=== PATIENT | male | born 1960 | race Caucasian/White ===

== ENCOUNTER 2022-03-06 11:57 | Outpatient (REF) | payer OTHER, SELFPAY | END 2022-03-06 11:58 | disposition home or self-care (01) | LOC: HO.LNP 11:57 | PROVIDERS: Visit Provider Clinical Nurse Specialist Psychiatric/Mental Health, Adult | DX: Z13.89 Encounter for screening for other disorder (principal) ==

== ENCOUNTER 2022-05-03 11:45 | Emergency (ER) | payer OTHER, SELFPAY ==
[2022-05-03 11:48] VITALS: BP 129/90; PULSE 96; RESP 16; TEMP 36.4; O2SAT 97; BMI 29.0
[2022-05-03 11:54] LABS: Glucose, Whole Blood 391 mg/dL (60-115)
--- NOTE | 2022-05-03 11:56 | ECG_ITS ---
Test Reason : recheck/ hyperglycemia Blood Pressure : / mmHG Vent. Rate : 084 BPM Atrial Rate : 084 BPM P-R Int : 176 ms QRS Dur : 090 ms QT Int : 348 ms P-R-T Axes : 049 -75 011 degrees QTc Int : 411 ms Normal sinus rhythm Pulmonary disease pattern Left anterior fascicular block Cannot rule out Inferior infarct (masked by fascicular block?) , age undetermined Abnormal ECG No previous ECGs available Referred By: Mine Barcenas Electronically Signed By:Leonard Bower
[2022-05-03 12:10] LABS: MANUAL DIFF FLAG NO
[2022-05-03 12:11] LABS: Basophils Absolute Auto 0.1 X10*3/uL (0.0-0.2); Basophils Percent Auto 0.6 % (0-2); Eosinophils Percent Auto 0.2 % (0-4); Hematocrit 42.7 % (42.0-52.0); Hemoglobin 14.6 g/dl (14.0-18.0); Imm Gran Abs Auto 0.01 X10*3/uL (0.00-0.03); Imm Gran Pct Auto 0.1 % (0.0-0.4); Lymphocytes Absolute Auto 2.1 X10*3/uL (1.2-4.9); Lymphocytes Percent Auto 23.2 % (20-40); Mean Corpuscular HGB Conc 34.2 g/dl (31.0-36.0); Mean Corpuscular Hemoglobin 27.8 pg (27.0-33.0); Mean Corpuscular Volume 81.2 fL (80.0-98.0); Mean Platelet Volume 12.4 fL (9.4-12.4); Monocytes Absolute Auto 0.5 X10*3/uL (0.1-1.2); Monocytes Percent Auto 5.1 % (2-11); Neutrophils Absolute Auto 6.2 x10*3/uL (2.0-8.3); Neutrophils Percent Auto 70.8 % (45-73); Platelet Count 171 X10*3/uL (160-400); Red Blood Count 5.26 X10*6/uL (4.60-5.80); Red Cell Distribution Width 12.7 % (11.0-16.0); White Blood Count 8.8 X10*3/uL (4.8-10.8)
[2022-05-03 12:20] VITALS: BP 147/75; PULSE 87; RESP 14; O2SAT 96
[2022-05-03 12:28] LABS: Appearance Urine CLEAR; Color Urine STRAW; Glucose Urine UA >=1000 MG/DL (NEG); Leukocyte Esterase Urine NEG (NEG); Nitrite Urine NEG (NEG); PH 6.5 (5.0-8.0); Urine Blood NEG (NEG); Urine Ketones 5 MG/DL (NEG); Urine Protein NEG (NEG-TRACE)
[2022-05-03 12:43] LABS: Alanine Aminotransferase 33 U/L (0-40); Albumin Level 4.6 g/dL (3.5-5.0); Alkaline Phosphatase 84 U/L (39-117); Anion Gap 16 (12-20); Aspartate Amino Transferase 20 U/L (5-37); Bilirubin Total 0.4 mg/dL (0.0-1.0); Blood Urea Nitrogen 11 mg/dL (9-16); Calcium 9.7 mg/dL (8.4-10.2); Carbon Dioxide 22 mmol/L (22-29); Chloride 100 mmol/L (96-108); Creatinine Clr Calc Pharmacy 72.6; Estimated Glomerular Filt Rate > 60; Glucose Random 444 mg/dL (60-115); Potassium 4.9 mmol/L (3.3-5.1); Sodium 133 mmol/L (135-145); Total Protein 7.3 g/dL (6.5-8.0)
--- NOTE | 2022-05-03 12:51 | ED.GENADULT ---
HPI - General Adult General Chief complaint: Recheck/Abnormal Lab/Rx Stated complaint: diabetes Time Seen by Provider: 05/03/22 11:55 Source: patient Mode of arrival: ambulatory History of Present Illness HPI narrative: 62-year-old male with known diabetes presents after he was referred from his primary care provider's office within elevated glucose level. Patient states that he takes his medication as prescribed but was told that there was a national shortage of 1 of them and is unable to recall which 1. Patient states that his mother is not getting any younger in sometimes forgets that he has special food considerations that helped him to control his diabetes. He otherwise denies any fever, chills, shortness of breath, chest pain/palpitations, GI or symptoms. Related Data Allergies Allergy/AdvReac Type Severity Reaction Status Date / Time No Known Allergies Allergy Mild NOT Unverified 08/04/20 15:12 APPLICABLE Review of Systems Review of Systems: Pertinent positives and negatives as stated HPI 10 point review of systems is otherwise negative. PMFSH Past Medical History Source: nursing notes reviewed Medical History ADHD Diabetes Social History Social History Alcohol intake: never Patient Tobacco Use Status: Never used Tobacco Use of substances other than those prescribed or required for medical reasons: No Advance Directives: No Advance Directives Information Provided: No Physical Exam ED Vital Signs: Vital Signs - 24 hr 05/03/22 11:48 05/03/22 12:20 Temperature 97.5 F Pulse Rate 96 87 Respiratory Rate 16 14 Blood Pressure 129/90 H 147/75 H Pulse Oximetry 97 96 Oxygen Delivery Method Room Air Room Air BMI result Body Mass Index 29.0 VITAL SIGNS: Reviewed. GENERAL: Well developed, well nourished, in no acute distress. HEAD: Normocephalic/atraumatic EYES: PERRLA, EOMI EARS: Ext canals without abnormality OROPHARYNX: no oral lesions noted, posterior pharynx clear LUNGS: Normal breath sounds. No adventitious sounds or accessory muscle use. SpO2<97> CARDIOVASCULAR: Regular rate and rhythm without noted murmurs ABDOMEN: Soft, non-tender, non-distended with bowel sounds. MUSCULOSKELETAL: No tenderness, deformities, or effusions noted on gross inspection. EXTREMITIES: No cyanosis, clubbing or edema. SKIN: Inspection of the skin reveals no rashes NEUROLOGIC: Alert and oriented x 4. Strength and sensation to light touch were grossly intact x 4. Course Course Course Narrative: 62-year-old male with history and clinical presentation consistent with hyperglycemia without clinical evidence of DKA or HHS and would likely benefit from more stringent dietary habits in combination with adjustment of his medication by his primary care provider. Review of all investigations otherwise negative for acute findings and there is no evidence of DKA or HHS either on presentation or objectively through laboratory measurements. Patient is otherwise tolerating oral intake and was counseled regarding appropriate dietary considerations and to continue take his medication as prescribed. 1431: I discussed this case with the patient's primary care provider who will see the patient again on May 08 at 14:00. Patient's medication will be renewed/refilled by tomorrow. Medical Decision Making Lab Data Result diagrams: 05/03/22 12:02 05/03/22 12:02 Labs: Lab Results 05/03/22 05/03/22 05/03/22 Range/Units 11:50 12:02 12:02 WBC 8.8 (4.8-10.8) X10*3/uL RBC 5.26 (4.60-5.80) X10*6/uL Hgb 14.6 (14.0-18.0) g/dl Hct 42.7 (42.0-52.0) % MCV 81.2 (80.0-98.0) fL MCH 27.8 (27.0-33.0) pg MCHC 34.2 (31.0-36.0) g/dl RDW 12.7 (11.0-16.0) % Plt Count 171 (160-400) X10*3/uL MPV 12.4 (9.4-12.4) fL Immature Gran % (Auto) 0.1 (0.0-0.4) % Neut % (Auto) 70.8 (45-73) % Lymph % (Auto) 23.2 (20-40) % [place] % (Auto) 5.1 (2-11) % Eos % (Auto) 0.2 (0-4) % Baso % (Auto) 0.6 (0-2) % Lymph # (Auto) 2.1 (1.2-4.9) X10*3/uL [place] # (Auto) 0.5 (0.1-1.2) X10*3/uL Eos # (Auto) 0.0 (0.0-0.4) X10*3/uL Baso # (Auto) 0.1 (0.0-0.2) X10*3/uL Abs Immat Gran (auto) 0.01 (0.00-0.03) X10*3/uL Absolute Neuts (auto) 6.2 (2.0-8.3) x10*3/uL Absolute Nucleated RBC 0.000 (0.0-0.012) X10*3/uL Nucleated RBC % (auto) 0.0 (0.0-0.2) /100WBC Sodium 133 L (135-145) mmol/L Potassium 4.9 (3.3-5.1) mmol/L Chloride 100 (96-108) mmol/L Carbon Dioxide 22 (22-29) mmol/L Anion Gap 16 (12-20) BUN 11 (9-16) mg/dL Creatinine 1.03 (0.5-1.4) mg/dL Estim Creat Clear Calc 72.6 Estimated GFR > 60 POC Glucose 391 H* (60-115) mg/dL Random Glucose 444 H* (60-115) mg/dL Calcium 9.7 (8.4-10.2) mg/dL Total Bilirubin 0.4 (0.0-1.0) mg/dL AST 20 (5-37) U/L ALT 33 (0-40) U/L Alkaline Phosphatase 84 (39-117) U/L Total Protein 7.3 (6.5-8.0) g/dL Albumin 4.6 (3.5-5.0) g/dL Urine Color Urine Appearance Urine pH (5.0-8.0) Ur Specific [place] (1.005-1.025) Urine Protein (NEG-TRACE) MG/DL Urine Glucose (UA) (NEG) MG/DL Urine Ketones (NEG) MG/DL Urine Blood (NEG) Urine Nitrite (NEG) Ur Leukocyte Esterase (NEG) Urine RBC (0) /HPF Urine WBC (0-4) /HPF Ur Squamous Epith Cells /LPF Urine Bacteria /LPF Acetone, Qual Negative (Negative) 05/03/22 05/03/22 Range/Units 12:18 13:47 WBC (4.8-10.8) X10*3/uL RBC (4.60-5.80) X10*6/uL Hgb (14.0-18.0) g/dl Hct (42.0-52.0) % MCV (80.0-98.0) fL MCH (27.0-33.0) pg MCHC (31.0-36.0) g/dl RDW (11.0-16.0) % Plt Count (160-400) X10*3/uL MPV (9.4-12.4) fL Immature Gran % (Auto) (0.0-0.4) % Neut % (Auto) (45-73) % Lymph % (Auto) (20-40) % [place] % (Auto) (2-11) % Eos % (Auto) (0-4) % Baso % (Auto) (0-2) % Lymph # (Auto) (1.2-4.9) X10*3/uL [place] # (Auto) (0.1-1.2) X10*3/uL Eos # (Auto) (0.0-0.4) X10*3/uL Baso # (Auto) (0.0-0.2) X10*3/uL Abs Immat Gran (auto) (0.00-0.03) X10*3/uL Absolute Neuts (auto) (2.0-8.3) x10*3/uL Absolute Nucleated RBC (0.0-0.012) X10*3/uL Nucleated RBC % (auto) (0.0-0.2) /100WBC Sodium (135-145) mmol/L Potassium (3.3-5.1) mmol/L Chloride (96-108) mmol/L Carbon Dioxide (22-29) mmol/L Anion Gap (12-20) BUN (9-16) mg/dL Creatinine (0.5-1.4) mg/dL Estim Creat Clear Calc Estimated GFR POC Glucose 326 H (60-115) mg/dL Random Glucose (60-115) mg/dL Calcium (8.4-10.2) mg/dL Total Bilirubin (0.0-1.0) mg/dL AST (5-37) U/L ALT (0-40) U/L Alkaline Phosphatase (39-117) U/L Total Protein (6.5-8.0) g/dL Albumin (3.5-5.0) g/dL Urine Color STRAW Urine Appearance CLEAR Urine pH 6.5 (5.0-8.0) Ur Specific [place] 1.010 (1.005-1.025) Urine Protein NEG (NEG-TRACE) MG/DL Urine Glucose (UA) >=1000 H (NEG) MG/DL Urine Ketones 5 (NEG) MG/DL Urine Blood NEG (NEG) Urine Nitrite NEG (NEG) Ur Leukocyte Esterase NEG (NEG) Urine RBC 0 (0) /HPF Urine WBC 0 (0-4) /HPF Ur Squamous Epith Cells NONE /LPF Urine Bacteria NONE /LPF Acetone, Qual (Negative) ECG Data Attestation: I personally reviewed and interpreted this ECG as follows: Prior ECG tracings: not available for review Interpretation: Normal sinus rhythm, HR-84, no STEMI, MD/QRS/QTC is within normal limits. Discharge Plan Discharge Clinical Impression: Hyperglycemia due to diabetes mellitus Patient Disposition: Home, Self-Care Instructions: Diabetes and Nutrition (ED), Diabetes and Exercise (ED) Additional Instructions: 1. You have been restarted on your metformin, a prescription has been sent to your pharmacy by your primary care provider and should be available to you by tomorrow. 2. A follow-up appointment has been made with your primary care provider for 05/08/2022 at 2:00pm, please do not miss this appointment. 3. Do not hesitate to return to the emergency room if you have any acute worsening of symptoms. Referrals: Name,MD Marlon [Primary Care Provider] - 05/08/22 2:00 pm
[2022-05-03 12:58] LABS: RBC Urine 0 /HPF (0); WBC Urine 0 /HPF (0-4)
[2022-05-03] MEDS: 0.9 % Sodium Chloride 1,000 ML 999 ML IV (13:00)
[2022-05-03 13:32] LABS: Acetone, serum QL Negative (Negative)
[2022-05-03 13:56] LABS: Glucose, Whole Blood 326 mg/dL (60-115)
[2022-05-03] MEDS: metFORMIN HCl 500 MG TABLET PO (15:20)
[2022-05-03 15:21] VITALS: BP 155/85; PULSE 64; RESP 16; O2SAT 98
== END 2022-05-03 15:39 | disposition home or self-care (01) ==
PROVIDERS: Emergency Provider Student in an Organized Health Care Education/Training Program; PCP Internal Medicine Geriatric Medicine
DX: E11.65 Type 2 diabetes mellitus with hyperglycemia (principal)
CPT/HCPCS: 36415; 80053; 81001; 82009; 82947; 85025; 93005; 96360; 99284; 99285

== ENCOUNTER 2024-08-21 09:02 | Outpatient (REF) | payer OTHER, SELFPAY ==
[2024-08-21 11:09] LABS: MANUAL DIFF FLAG NO
[2024-08-21 11:18] LABS: Basophils Percent Auto 0.8 % (0-2); Eosinophils Absolute Auto 0.1 X10*3/uL (0.0-0.4); Eosinophils Percent Auto 2.6 % (0-4); Hematocrit 41.6 % (42.0-52.0); Imm Gran Abs Auto 0.01 X10*3/uL (0.00-0.03); Imm Gran Pct Auto 0.2 % (0.0-0.4); Lymphocytes Absolute Auto 2.1 X10*3/uL (1.2-4.9); Mean Corpuscular HGB Conc 33.7 g/dl (31.0-36.0); Mean Corpuscular Hemoglobin 27.7 pg (27.0-33.0); Mean Corpuscular Volume 82.4 fL (80.0-98.0); Mean Platelet Volume 12.5 fL (9.4-12.4); Monocytes Absolute Auto 0.6 X10*3/uL (0.1-1.2); Monocytes Percent Auto 10.5 % (2-11); Neutrophils Absolute Auto 2.5 x10*3/uL (2.0-8.3); Neutrophils Percent Auto 46.9 % (45-73); Platelet Count 196 X10*3/uL (160-400); Red Blood Count 5.05 X10*6/uL (4.60-5.80); Red Cell Distribution Width 13.6 % (11.0-16.0); White Blood Count 5.3 X10*3/uL (4.8-10.8)
[2024-08-21 12:37] LABS: Creatinine Urine 59.39 mg/dL; Microalbum/Creatinine Ratio Ur 18.5 ug/mg cr (<30)
[2024-08-21 12:47] LABS: Alanine Aminotransferase 28 U/L (0-40); Albumin Level 4.4 g/dL (3.5-5.0); Alkaline Phosphatase 70 U/L (39-117); Anion Gap 15 (12-20); Aspartate Amino Transferase 22 U/L (5-37); Bilirubin Total 0.5 mg/dL (0.0-1.0); Blood Urea Nitrogen 10 mg/dL (9-16); Calcium 9.8 mg/dL (8.4-10.2); Carbon Dioxide 23 mmol/L (22-29); Chloride 104 mmol/L (96-108); Cholesterol 132 mg/dL (<200); Estimated Glomerular Filt Rate > 60; Glucose Random 200 mg/dL (60-115); HDL Cholesterol 37 mg/dL (>40); LDL Cholesterol Calculated 59 mg/dL (<100); Sodium 138 mmol/L (135-145); Total Protein 7.2 g/dL (6.5-8.0); Triglycerides 182 mg/dL (<150)
== END 2024-08-21 09:03 | disposition home or self-care (01) ==
LOC: HO.HHCL 09:02
PROVIDERS: Visit Provider Internal Medicine Geriatric Medicine
DX: E11.69 Type 2 diabetes mellitus with other specified complication (principal); E66.9 Obesity, unspecified
CPT/HCPCS: 36415; 80053; 80061; 82043; 82570; 85025

== ENCOUNTER 2024-10-29 09:33 | Outpatient (REF) | payer OTHER, SELFPAY ==
--- OUTSIDE RECORDS SUMMARY | 2024-10-29 09:37 | XMS_ITS | Clinical Summary ---
Author Organization Unknown Care Team Providers Care Gambling Dealer Name Role Phone SHANNA CUI, MILKA Unavailable Unavailable NATHAN OIL WELL CABLE TOOL DRILLER, NOMAN Unavailable Unavailable CESIA NELSON, WAGNER Unavailable Unavailable Payers Payer Name Policy Type Policy Number Effective Date Expira tion Date [facility] [id number] MEDICAID [facility] [id number] MEDICARE - [facility]/[place] - PD [id number] Problems Condition Name Condition Details Condition Category Status Onset Date Resolution Date Last Treatment Date Treating Clinician Comments SCHIZOPHRENI A, UNSPECIFIED Active 05-28 00:00: 00 TYPE 2 DIABETES MELLITUS WITHOUT COMPLICATION S Active 11-18 00:00: 00 INHALANT ABUSE, IN REMISSION Active 11-18 00:00: 00 KENO WRITER / RUNNER (CURRENT) USE OF ORAL HYPOGLYCEMIC DRUGS Active 11-18 00:00: 00 Allergies, Adverse Reactions, Alerts Allergy Name Allergy Type Status Severity Reaction(s) Onset Date Inactive Date Treating Clinician Comments NKA Propensity to adverse reactions Active 2019-01 23:13:3 4 Medications Ordered Medication Name Filled Medication Name Start Date Stop Date Current Medication? Ordering Clinician Indication Dosage Frequency Signature (SIG) Comments Components atorvastati n 20 mg tablet 12-15 00:00: 00 Yes [id number] 20 mg EVERY DAY 20 mg EVERY DAY (route: oral) Alternate Route: BY MOUTH. Med Classific ation: Cardiovas cular Therapy Agents benztropine 1 mg tablet 01-28 00:00: 00 Yes [id number] 1 mg DAILY 1 mg SHERIN Y (route: oral) Alternate Route: NONE. Med Classific ation: Central Nervous System Agents Depakote ER 500 mg tablet,exte nded release 01-28 00:00: 00 Yes [id number] 500 mg BEDTIME 500 mg BEDTIME (route: oral) Alternate Route: NONE. Med Classific ation: Central Nervous System Agents metformin 500 mg tablet 1-28 00:00: 00 Yes [id number] 500 mg EVERY DAY 500 mg EVERY DAY (route: oral) Alternate Route: BY MOUTH. Med Classific ation: Endocrine Risperdal Consta 50 mg/2 mL intramuscul ar susp,extend ed release 2 00:00: 00 Yes [id number] 50 mg 1 SYRINGE INTRAMUSCU LARLY ONCE EVERY TWO WEEKS DIRECTED EVERY 50 mg 1 SYRINGE INTRAMUSCU LARLY ONCE EVERY TWO WEEKS DIRECTED EVERY (route: intramuscu lar) Alternate Route: 50MG IM. Med Classific ation: Central Nervous System Agents Risperdal 2 mg tablet 3-13 00:00: 00 Yes [id number] 2 mg BEDTIME 2 mg BEDTIME (route: oral) Alternate Route: NONE. Med Classific ation: Central Nervous System Agents glipizide ER 2.5 mg tablet, extended release 24 hr 05-17 00:00: 00 04-27 23:59 :00 No [id number] 2.5 mg DAILY 2.5 mg DAILY (route: oral) Med Classific ation: Endocrine Vital Signs Vital Name Observation Time Observation Value Commen ts Temperature 2024-10-27 12:56:00.000 98.1 [degF] Temperature 2024-10-26 11:16:00.000 97.5 [degF] Temperature 2024-10-25 10:40:00.000 98.1 [degF] Temperature 2024-10-24 11:59:00.000 97.9 [degF] Temperature 2024-10-23 14:04:00.000 97.8 [degF] Temperature 2024-10-22 12:41:00.000 97.5 [degF] Temperature 2024-10-21 14:01:00.000 97.5 [degF] Temperature 2024-10-20 13:26:00.000 97.5 [degF] Temperature 2024-10-19 12:37:00.000 97.5 [degF] Temperature 2024-10-18 12:21:00.000 97.8 [degF] Temperature 2024-10-17 11:30:00.000 98 [degF] Temperature 2024-10-16 10:49:00.000 97.5 [degF] Temperature 2024-10-15 13:50:00.000 97.6 [degF] Temperature 2024-10-14 13:29:00.000 98 [degF] Temperature 2024-10-13 13:18:00.000 97.5 [degF] Temperature 2024-10-12 11:57:00.000 97.9 [degF] Temperature 2024-10-11 12:48:00.000 97.7 [degF] Temperature 2024-10-10 10:08:00.000 97.5 [degF] Temperature 2024-10-09 14:36:00.000 98 [degF] Temperature 2024-10-08 12:07:00.000 97.5 [degF] Temperature 2024-10-07 14:04:00.000 97.5 [degF] Temperature 2024-10-06 11:50:00.000 97.8 [degF] Temperature 2024-10-05 14:58:00.000 97.8 [degF] Temperature 2024-10-04 21:57:00.000 98 [degF] Temperature 2024-10-03 11:01:00.000 97.5 [degF] Temperature 2024-10-02 13:09:00.000 97.5 [degF] Temperature 2024-10-01 10:17:00.000 97.6 [degF] Temperature 2024-09-30 13:39:00.000 97.6 [degF] Temperature 2024-09-29 11:41:00.000 97.8 [degF] Temperature 2024-09-28 11:48:00.000 97.9 [degF] Temperature 2024-09-27 11:49:00.000 98.1 [degF] Temperature 2024-09-26 10:59:00.000 97.5 [degF] Temperature 2024-09-25 12:23:00.000 97.5 [degF] Temperature 2024-09-24 12:56:00.000 97.6 [degF] Temperature 2024-09-23 11:01:00.000 97.5 [degF] Temperature 2024-09-22 12:50:00.000 98 [degF] Temperature 2024-09-21 11:15:00.000 97.9 [degF] Temperature 2024-09-20 11:50:00.000 97.9 [degF] Temperature 2024-09-19 09:45:00.000 97.6 [degF] Temperature 2024-09-18 10:56:00.000 98 [degF] Temperature 2024-09-17 13:34:00.000 98 [degF] Temperature 2024-09-16 15:09:00.000 97.6 [degF] Temperature 2024-09-15 13:47:00.000 97.5 [degF] Temperature 2024-09-14 12:49:00.000 97.5 [degF] Temperature 2024-09-13 11:41:00.000 97.5 [degF] Temperature 2024-09-12 14:28:00.000 97.5 [degF] Temperature 2024-09-11 15:58:00.000 97.5 [degF] Temperature 2024-09-10 09:45:00.000 97.5 [degF] Temperature 2024-09-09 10:22:00.000 97.5 [degF] Temperature 2024-09-08 12:12:00.000 97.5 [degF] Temperature 2024-09-07 14:00:00.000 97.5 [degF] Temperature 2024-09-06 09:55:00.000 97.5 [degF] Temperature 2024-09-05 11:22:00.000 97.5 [degF] Temperature 2024-09-04 23:55:00.000 97.6 [degF] Temperature 2024-09-03 08:42:00.000 97.5 [degF] Systolic Blood Pressure 2024-10-14 13:29:00.000 134 mm [Hg] Diastolic Blood Pressure 2024-10-14 13:29:00.000 70 mm [Hg] Plan of Treatment Planned Activity Planned Date Details Comments Future Scheduled Test SKILLED NU RSE TO EVALUATE PATIENT, IDENTIFY PRIMARY AND CO-MORBID CONDITIONS CODED PER CODING GUIDELINES, AND DEVELOP PATIENT SPECIFIC PLAN OF CARE THAT INCLUDES PATIENT GOAL FOR HOME HEALTH. [code = SKILLED NURSE TO EVALUATE PATIENT, IDENTIFY PRIMARY AND CO-MORBID CONDITIONS CODED PER CODING GUIDELINES, AND DEVELOP PATIENT SPECIFIC PLAN OF CARE THAT INCLUDES PATIENT GOAL FOR HOME HEALTH.] Future Scheduled Test SKILLED NU RSE TO PERFORM HOME SAFETY AND FALL ASSESSMENT AND PROVIDE INSTRUCTION TO IMPLEMENT HOME SAFETY AND FALL PREVENTION STRATEGIES. [code = SKILLED NURSE TO PERFORM HOME SAFETY AND FALL ASSESSMENT AND PROVIDE INSTRUCTION TO IMPLEMENT HOME SAFETY AND FALL PREVENTION STRATEGIES.] Future Scheduled Test SKILLED NU RSE TO PROVIDE INSTRUCTION TO PATIENT/CAREGIVER RELATED TO DISCHARGE PLANNING. [code = SKILLED NURSE TO PROVIDE INSTRUCTION TO PATIENT/CAREGIVER RELATED TO DISCHARGE PLANNING.] Future Scheduled Test SKILLED NU RSE TO O/A OF PATIENTS MENTAL/BEHAVIORAL STATUS, ASSESS VITAL SIGNS DAILY [code = SKILLED NURSE TO O/A OF PATIENTS MENTAL/BEHAVIORAL STATUS, ASSESS VITAL SIGNS DAILY ] Future Scheduled Test CLINICAL S UMMARY (SOC/RECERT, 10 DAY, 60 DAY): THE PATIENT IS RECEIVING HOMECARE DUE TO NEW ONSET/EXACERBATION OF: YES RECENT HOSPITALIZATION/INPATIENT ADMISSION RELATED TO: NO NEW OR CHANGED MEDICATIONS PERTINENT TO THE PLAN OF CARE: YES PATIENT LIVING SITUATION/CAREGIVER STATUS: WITH FAMILY SUMMARIZE SKILLED NEED: MEDICATION MANAGEMENT, VITAL SIGN ASSESSMENT, MENTAL STATUS ASSESSMENT AND DIAGNOSIS MANAGEMENT [code = CLINICAL SUMMARY (SOC/RECERT, 10 DAY, 60 DAY): THE PATIENT IS RECEIVING HOMECARE DUE TO NEW ONSET/EXACERBATION OF: YES RECENT HOSPITALIZATION/INPATIENT ADMISSION RELATED TO: NO NEW OR CHANGED MEDICATIONS PERTINENT TO THE PLAN OF CARE: YES PATIENT LIVING SITUATION/CAREGIVER STATUS: WITH FAMILY SUMMARIZE SKILLED NEED: MEDICATION MANAGEMENT, VITAL SIGN ASSESSMENT, MENTAL STATUS ASSESSMENT AND DIAGNOSIS MANAGEMENT ] Future Scheduled Test SKILLED NU RSE WILL MAINTAIN SITUATIONAL AWARENESS FOR SAFETY AND WILL NOTIFY CLINICAL PRODUCT ENGINEERING MANAGER AND PHYSICIAN/PROVIDER WITH ANY CHANGE IN CONDITION. [code = SKILLED NURSE WILL MAINTAIN SITUATIONAL AWARENESS FOR SAFETY AND WILL NOTIFY CLINICAL PRODUCT ENGINEERING MANAGER AND PHYSICIAN/PROVIDER WITH ANY CHANGE IN CONDITION.] Future Scheduled Test SKILLED NU RSE TO REVIEW PATIENT MEDICATIONS. INSTRUCT PATIENT/CAREGIVER ON MONITORING OF EFFECTIVENESS, ADVERSE DRUG REACTIONS, SIDE EFFECTS OF ALL MEDICATIONS (PRESCRIPTION/-OTC), AND HOW AND WHEN TO REPORT PROBLEMS. [code = SKILLED NURSE TO REVIEW PATIENT MEDICATIONS. INSTRUCT PATIENT/CAREGIVER ON MONITORING OF EFFECTIVENESS, ADVERSE DRUG REACTIONS, SIDE EFFECTS OF ALL MEDICATIONS (PRESCRIPTION/-OTC), AND HOW AND WHEN TO REPORT PROBLEMS.] Future Scheduled Test SKILLED NU RSE TO ADMINISTER MEDICATIONS DAILY AND PRE-POUR MEDICATIONS TILL NEXT [facility] VISIT PER MEDICATION LIST. [code = SKILLED NURSE TO ADMINISTER MEDICATIONS DAILY AND PRE-POUR MEDICATIONS TILL NEXT [facility] VISIT PER MEDICATION LIST.] Future Scheduled Test SKILLED NU RSE FOR MEDICATION ADMINISTRATION PER MEDICATION LIST TO BE PERFORMED DAILY [code = SKILLED NURSE FOR MEDICATION ADMINISTRATION PER MEDICATION LIST TO BE PERFORMED DAILY ] Future Scheduled Test SKILLED NU RSE TO PRE-POUR MEDICATION PER MEDICATION LIST TILL NEXT [facility] VISIT [code = SKILLED NURSE TO PRE-POUR MEDICATION PER MEDICATION LIST TILL NEXT [facility] VISIT ] Future Scheduled Test SKILLED NU RSE FOR O/A AND SKILLED TEACHING RELATED TO MANAGEMENT OF DEPRESSIVE SYMPTOMS AND/OR DEPRESSION. SN TO REPORT SIGNIFICANT CHANGE IN DEPRESSIVE SYMPTOMS TO CLINICAL PROVIDER FOR EARLY INTERVENTION. [code = SKILLED NURSE FOR O/A AND SKILLED TEACHING RELATED TO MANAGEMENT OF DEPRESSIVE SYMPTOMS AND/OR DEPRESSION. SN TO REPORT SIGNIFICANT CHANGE IN DEPRESSIVE SYMPTOMS TO CLINICAL PROVIDER FOR EARLY INTERVENTION.] Future Scheduled Test SKILLED NU RSE FOR O/A AND SKILLED TEACHING OF COPING SKILLS TO MANAGE ANXIETY AND MAINTAIN SAFETY. [code = SKILLED NURSE FOR O/A AND SKILLED TEACHING OF COPING SKILLS TO MANAGE ANXIETY AND MAINTAIN SAFETY.] Future Scheduled Test SKILLED NU RSE FOR O/A OF NEUROCOGNITIVE AND BEHAVIORAL STATUS [code = SKILLED NURSE FOR O/A OF NEUROCOGNITIVE AND BEHAVIORAL STATUS] Future Scheduled Test SKILLED NU RSE FOR O/A OF ALTERED THOUGHT PROCESS AND/OR DISRUPTION IN COGNITIVE OPERATIONS AND ACTIVITIES [code = SKILLED NURSE FOR O/A OF ALTERED THOUGHT PROCESS AND/OR DISRUPTION IN COGNITIVE OPERATIONS AND ACTIVITIES ] Future Scheduled Test SKILLED NU RSE TO ASSESS PATIENTS PSYCHOSOCIAL STATUS TO IDENTIFY POTENTIAL ISSUES THAT MAY COMPLICATE THE PROVISION OF THE PLAN OF CARE INCLUDING THE PATIENTS ABILITY TO ACCESS COMMUNITY RESOURCES AND PSYCHOSOCIAL SUPPORT SERVICES. [code = SKILLED NURSE TO ASSESS PATIENTS PSYCHOSOCIAL STATUS TO IDENTIFY POTENTIAL ISSUES THAT MAY COMPLICATE THE PROVISION OF THE PLAN OF CARE INCLUDING THE PATIENTS ABILITY TO ACCESS COMMUNITY RESOURCES AND PSYCHOSOCIAL SUPPORT SERVICES.] Future Scheduled Test SKILLED NU RSE FOR O/A OF CLIENT'S SOCIAL ISOLATION AND PROVIDE ASSISTANCE TO CLIENT IN DEVELOPMENT OF PLANNED ACTIVITIES [code = SKILLED NURSE FOR O/A OF CLIENT'S SOCIAL ISOLATION AND PROVIDE ASSISTANCE TO CLIENT IN DEVELOPMENT OF PLANNED ACTIVITIES] Future Scheduled Test MEDICATION S WILL BE HELD AND STORED IN LOCKBOX [code = MEDICATIONS WILL BE HELD AND STORED IN LOCKBOX] Goal 2019-05-28 Patient Goal - I WANT TO TAKE MY OWM INJECTIONS Goal 2019-03-30 Patient Goal - I WANT TO TAKE MY OWM INJECTIONS Goal 2019-07-28 Patient Goal - TAKING MEDS O N TIME Goal 2019-09-28 Patient Goal - KNOW ABOUT MY MEDS Goal 2020-07-21 Patient Goal - GIVE MY OWN I NJECTION Goal 2021-01-17 Patient Goal - GIVE MY OWN I NJECTION Goal 2021-03-20 Patient Goal - GIVE MY OWN I NJECTION Goal 2021-05-18 Patient Goal - GIVE MY OWN I NJECTION Goal 2021-07-17 Patient Goal - GIVE MY OWN I NJECTION Goal 2021-09-14 Patient Goal - GIVE MY OWN I NJECTION Goal 2021-11-13 Patient Goal - GIVE MY OWN I NJECTION Goal 2022-01-12 Patient Goal - GIVE MY OWN I NJECTION Goal 2022-03-13 Patient Goal - GIVE MY OWN I NJECTION Goal 2022-05-14 Patient Goal - GIVE MY OWN I NJECTION Goal 2022-07-11 Patient Goal - GIVE MY OWN I NJECTION Goal 2022-09-10 Patient Goal - GIVE MY OWN I NJECTION Goal 2022-11-08 Patient Goal - GIVE MY OWN I NJECTION Goal 2023-01-07 Patient Goal - GIVE MY OWN I NJECTION Goal 2023-03-08 Patient Goal - GIVE MY OWN I NJECTION Goal 2023-05-07 Patient Goal - GIVE MY OWN I NJECTION Goal 2023-07-08 Patient Goal - GIVE MY OWN I NJECTION Goal 2023-09-04 Patient Goal - GIVE MY OWN I NJECTION Goal 2023-11-04 Patient Goal - GIVE MY OWN I NJECTION Goal 2024-01-02 Patient Goal - GIVE MY OWN I NJECTION Goal 2024-03-02 Patient Goal - GIVE MY OWN I NJECTION Goal 2024-05-01 Patient Goal - GIVE MY OWN I NJECTION Goal 2024-06-30 Patient Goal - GIVE MY OWN I NJECTION Goal 2024-08-29 Patient Goal - GIVE MY OWN I NJECTION Goal Patient Goal - GIVE MY OWN I NJECTION Goal 2020-11-21 Patient Goal - GIVE MY OWN I NJECTION Goal 2020-09-19 Patient Goal - GIVE MY OWN I NJECTION Goal 2020-05-24 Patient Goal - GIVE MY OWN I NJECTION Goal 2020-03-23 Patient Goal - GIVE MY OWN I NJECTION Goal 2020-01-26 Patient Goal - GIVE MY OWN I NJECTION Goal 2019-11-25 Patient Goal - GIVE MY OWN I NJECTION Goal Provider Goal - A PLAN OF CARE WILL BE ESTABLISHED THAT MEETS PATIENT'S [facility] NEEDS AND INCLUDES PATIENT GOAL FOR HOME HEALTH. Goal Provider Goal - PATIENT/CAREGIVER WILL VERBALIZE/DEMONSTRATE EFFECTIVE HOME SAFETY AND FALL PREVENTION STRATEGIES THROUGHOUT CERTIFICATION PERIOD. Goal Provider Goal - PATIENT/CAREGIVER WILL VERBALIZE UNDERSTANDING OF DISCHARGE PLANNING INSTRUCTIONS BY DATE OF DISCHARGE. Goal Provider Goal - ALTERED MENTAL/BEHAVIORAL STATUS WILL BE IDENTIFIED PROMPTLY AND INTERVENTION INITIATED QUICKLY TO MINIMIZE ASSOCIATED RISKS THROUGHOUT CERTIFICATION PERIOD. Goal Provider Goal - Goal Provider Goal - PATIENT WILL REMAIN SAFE IN THE COMMUNITY AND WILL BE FREE OF DANGER TO SELF AND OTHERS THROUGHOUT THE CERTIFICATION PERIOD. Goal Provider Goal - PATIENT/CAREGIVER WILL VERBALIZE UNDERSTANDING OF EDUCATION PROVIDED ON MEDICATIONS BY THE END OF THE CERTIFICATION PERIOD. Goal Provider Goal - PATIENT WILL COMPLY WITH MEDICATION WHEN SKILLED NURSE ADMINISTERS AND PRE-POURS MEDICATION THROUGHOUT CERTIFICATION PERIOD. Goal Provider Goal - PATIENT WILL COMPLY WITH MEDICATION WHEN NURSE ADMINISTERS THROUGHOUT CERTIFICATION PERIOD. Goal Provider Goal - PATIENT WILL COMPLY WITH MEDICATION WHEN SKILLED NURSE PRE-POURS MEDICATION THROUGHOUT CERTIFICATION PERIOD. Goal Provider Goal - PATIENT WILL REMAIN SAFE WITHOUT DECOMPENSATION IN DEPRESSIVE CONDITION, WHILE MAINTAINING OPTIMAL LEVEL OF MENTAL HEALTH AND WELL BEING THROUGHOUT CERTIFICATION PERIOD. Goal Provider Goal - PATIENT WILL BE ABLE TO PERFORM DAILY FUNCTIONS AND HAVE OPTIMAL IMPROVEMENT IN LEVEL OF ANXIETY THROUGHOUT CERTIFICATION PERIOD. Goal Provider Goal - PATIENT WILL BE ABLE TO PERFORM DAILY FUNCTIONS AND MAINTAIN OPTIMAL BEHAVIORAL/NEUROCOGNITIVE STATUS THROUGHOUT CERTIFICATION PERIOD. Goal Provider Goal - PATIENT WILL BE ABLE TO PERFORM DAILY FUNCTIONS AND HAVE OPTIMAL IMPROVEMENT IN THOUGHT PROCESS THROUGHOUT CERTIFICATION PERIOD. Goal Provider Goal - PSYCHOSOCIAL NEEDS WILL BE IDENTIFIED AND PLAN IMPLEMENTED TO MINIMIZE RISK THROUGHOUT CERTIFICATION PERIOD. Goal Provider Goal - PATIENT WILL DEMONSTRATE AN INCREASED INTEREST IN SOCIALIZATION AND ACTIVITIES BY THE END OF THE CERTIFICATION PERIOD. Goal Provider Goal - MEDICATION WILL BE STORED IN LOCKBOX FOR SAFETY. Encounters Start Date/Time End Date/Time Encounter Type Admission Type Attending [facility] [place] Facility Care Department Encounter ID Discharge Date Discharge Status Discharge Condition Discharge Reason Percent Goals Met 2011-01-15 00:00:00 2024-11-01 00:00:00 Outpatient RECERTIFIC [facility] [id number] 23.08
[2024-10-29 12:04] LABS: Prostate Specific Antigen 0.95 ng/mL (<0.05-4.0)
== END 2024-10-29 09:34 | disposition home or self-care (01) ==
LOC: HO.HHCL 09:33
PROVIDERS: Visit Provider Internal Medicine Geriatric Medicine
DX: Z12.5 Encounter for screening for malignant neoplasm of prostate (principal)
CPT/HCPCS: 36415; 84153

== ENCOUNTER 2025-01-21 11:08 | Outpatient (REF) | payer OTHER, SELFPAY ==
[2025-01-21 12:34] LABS: Anion Gap 15 (12-20); Blood Urea Nitrogen 9 mg/dL (9-16); Calcium 9.8 mg/dL (8.4-10.2); Carbon Dioxide 23 mmol/L (22-29); Chloride 103 mmol/L (96-108); Estimated Glomerular Filt Rate > 60; Glucose Random 282 mg/dL (60-115); Potassium 3.8 mmol/L (3.3-5.1); Sodium 137 mmol/L (135-145)
[2025-01-21 13:02] LABS: Vitamin B12 765 pg/mL (200-900)
== END 2025-01-21 11:09 | disposition home or self-care (01) ==
LOC: HO.HHCL 11:08
PROVIDERS: Visit Provider Internal Medicine Geriatric Medicine
DX: E11.69 Type 2 diabetes mellitus with other specified complication (principal); E66.9 Obesity, unspecified
CPT/HCPCS: 36415; 80048; 82607

== ENCOUNTER 2025-03-02 10:15 | Outpatient (REF) | payer OTHER, SELFPAY ==
[2025-03-02 11:22] LABS: Anion Gap 16 (12-20); Blood Urea Nitrogen 10 mg/dL (9-16); Calcium 9.8 mg/dL (8.4-10.2); Carbon Dioxide 20 mmol/L (22-29); Chloride 103 mmol/L (96-108); Estimated Glomerular Filt Rate > 60; Glucose Random 185 mg/dL (60-115); Potassium 3.9 mmol/L (3.3-5.1); Sodium 135 mmol/L (135-145)
--- OUTSIDE RECORDS SUMMARY | 2025-03-02 12:11 | XMS_ITS | Encounter Summary ---
Author Organization [employer] Address [address] [facility] 7t [place] [address] Care Team Providers Care Associate Relations Specialist Name Role Phone Name, Marlon CUI Primary Care Provider [phone] PuEliana golden PharmD Unavailable [phone] Reason for Visit * Reason Onset Date Comments Med Refill 09/09/2023 Encounter Details Date Type Department Care Team (Late Contact Info) Description 09/09/2023 Telephone [facility] MEDICINE [address] [place] [address] [phone] NameMarlon MD [address] [place] [phone] Med Refill Social History Tobacco Use Types Packs/Day Years Used Date Smoking Tobacco: Never Passive Smoke Exposure: Never Smokeless Tobacco: Never Sex and Gender Information Value Date Recorded Sex Assigned at Male 09/17/2022 10:15 AM EDT Legal Sex Male 10:15 AM EDT Gender Identity Male 09/17/2022 10:15 AM EDT Sexual Orientation Straight 09/17/2022 10 :15 AM EDT documented as of this encounter Plan of Treatment Upcoming Encounters Date Type Department Care Team (Late Contact Info) Description 03/16/2025 3:45 PM EDT Office Visit [facility] MEDICINE [address] [place] [address] [phone] NameMarlon MD [address] [place] [address] [phone] 04/21/2025 10:00 AM EDT Medication Management [facility] MEDICINE [address] [place] [address] [phone] Puia, Eliana, PharmD [address] [place] [address] 07/14/2025 10:30 AM EDT Office Visit [facility] [address] [place], [place] [phone] Milagros Jones, OD [address] [place] [address] documented as of this encounter Visit Diagnoses Not on filedocumented in this encounter Care Teams Associate Relations Specialist Relationship Specialty Start Date End Date Name, MD Marlon [address] [place] [address] PCP - General Family Medicine 02/15/16 Eliana Mark, Delfina [address] [place] [phone] Pharmacist Internal Medicine 10/09/24 documented as of this encounter
--- OUTSIDE RECORDS SUMMARY | 2025-03-02 12:11 | XMS_ITS | Encounter Summary ---
Author Organization [employer] Address [address] [facility] 7t [place] [address] Care Team Providers Care Director Imaging Name Role Phone Name, Marlon CUI Primary Care Provider [phone] PuEliana golden PharmD Unavailable [phone] Reason for Visit * Reason Comments Med Refill Encounter Details Date Type Department Care Team (Late Contact Info) Description 09/08/2023 Refill [facility] MEDICINE [address] [place] [address] [phone] Name, MD Marlon [address] [place] [phone] Diabetes mellitus type 2 in obese ([facility]) Social History Tobacco Use Types Packs/Day Years [...] Description 03/16/2025 3:45 PM EDT Office Visit [facility] MEDICINE [address] [place] [address] [phone] NameMarlon MD [address] [place] [address] [phone] 04/21/2025 10:00 AM EDT Medication Management [facility] MEDICINE [address] [place] [phone] Puia, Eliana, PharmD [address] [place] [address] 07/14/2025 10:30 AM EDT Office Visit [facility] [address] [place], [place] [phone] Milagros Jones, OD [address] [place] [address] documented as of this encounter Visit Diagnoses Diagnosis Diabetes mellitus type 2 in obese Type II or unspecified type diabetes mellitus without mention of complication, not stated as uncontrolled documented in this encounter Care Teams Director Imaging Relationship Specialty Start Date End Date Name, MD Marlon [address] [place] [address] PCP - General Family Medicine 02/15/16 Eliana Mark PharmD [address] [place], [place] [phone] Pharmacist Internal Medicine 10/09/24 documented as of this encounter
--- OUTSIDE RECORDS SUMMARY | 2025-03-02 12:11 | XMS_ITS | Encounter Summary ---
Author Organization [employer] Address [address] [facility] 7t [place] [address] Care Team Providers Care Metal Forger'S Assistant Name Role Phone Name, Marlon CUI Primary Care Provider [phone] PuEliana golden PharmD Unavailable Reason for Visit * Reason Comments Med Refill Encounter Details Date Type Department Care Team (Late Contact Info) Description 10/17/2023 Refill [facility] MEDICINE [address] [place] [phone] Name, MD Marlon [address] [place] [phone] Diabetes mellitus type 2 in obese ([facility]) Social History Tobacco Use Types Packs/Day [...] Description 03/16/2025 3:45 PM EDT Office Visit [facility] MEDICINE [address] [place] [address] [phone] NameMarlon MD [address] [place] [address] [phone] 04/21/2025 10:00 AM EDT Medication Management [facility] MEDICINE [address] [place] [phone] Puia, Eliana, PharmD [address] [place] [address] 07/14/2025 10:30 AM EDT Office Visit [facility] [address] [place], [place] [phone] Milagros Jones, OD [address] [place] [address] documented as of this encounter Visit Diagnoses Diagnosis Diabetes mellitus type 2 in obese Type II or unspecified type diabetes mellitus without mention of complication, not stated as uncontrolled documented in this encounter Care Teams Metal Forger'S Assistant Relationship Specialty Start Date End Date Name, MD Marlon [address] [place] [address] PCP - General Family Medicine 02/15/16 Eliana Mark PharmD [address] [place], [place] [phone] Pharmacist Internal Medicine 10/09/24 documented as of this encounter
--- OUTSIDE RECORDS SUMMARY | 2025-03-02 12:11 | XMS_ITS | Clinical Summary ---
Author Organization Unknown Care Team Providers Care Data Migration Consultant Name Role Phone PRISCILLA BRITO, LORETO Unavailable Unavailable NATHAN CITRUS PICKER, NOMAN Unavailable Unavailable CESIA NELSON, WAGNER Unavailable Unavailable Payers Payer Name Policy Type Policy Number Effective Date Expira tion Date [facility] [id number] MEDICAID [facility] [id number] MEDICARE - [facility] [id number] Problems Condition Name Condition Details Condition Category Status Onset Date Resolution Date Last Treatment Date Treating Clinician Comments SCHIZOPHRENI A, UNSPECIFIED Active 05-28 00:00: 00 TYPE 2 DIABETES MELLITUS WITHOUT COMPLICATION S Active 11-18 00:00: 00 INHALANT ABUSE, IN REMISSION Active 11-18 00:00: 00 CONSERVATION SPECIALIST (CURRENT) USE OF ORAL HYPOGLYCEMIC DRUGS Active [...] 20 mg tablet 12-15 00:00: 00 Yes [id number] 20 mg EVERY DAY 20 mg EVERY DAY (route: oral) Alternate Route: BY MOUTH. Med Classific ation: Cardiovas cular Therapy Agents benztropine 1 mg tablet 01-28 00:00: 00 Yes [id number] 1 mg DAILY 1 mg SHERIN Y (route: oral) Alternate Route: NONE. Med Classific ation: Central Nervous System Agents Depakote ER 500 mg tablet,exte nded release 01-28 00:00: 00 Yes [id number] 500 mg BEDTIME 500 mg BEDTIME (route: oral) Alternate Route: NONE. Med Classific ation: Central Nervous System Agents metformin 500 mg tablet 1-28 00:00: 00 12-30 23:59 :00 No [id number] 500 mg EVERY DAY 500 mg EVERY DAY (route: oral) Alternate Route: BY MOUTH. Med Classific ation: Endocrine Risperdal Consta 50 mg/2 mL intramuscul ar susp,extend ed release 2 00:00: 00 Yes [id number] 50 mg 1 SYRINGE INTRAMUSCU LARLY ONCE EVERY TWO WEEKS DIRECTED EVERY 50 mg 1 SYRINGE INTRAMUSCU LARLY ONCE EVERY TWO WEEKS DIRECTED EVERY (route: intramuscu lar) Alternate Route: 50MG IM. Med Classific ation: Central Nervous System Agents Risperdal 2 mg tablet - 00:00: 00 Yes [id number] 2 mg BEDTIME 2 mg BEDTIME (route: oral) Alternate Route: NONE. Med Classific ation: Central Nervous System Agents glipizide ER 2.5 mg tablet, extended release 24 hr 6-30 00:00: 00 04-27 23:59 :00 No [id number] 2.5 mg DAILY 2.5 mg DAILY (route: oral) Med Classific ation: Endocrine metformin ER 500 mg tablet,exte nded release 24 hr 2-14 00:00: 00 Yes [id number] 500 mg 2 TIMES DAILY 500 mg 2 TIMES DAILY (route: oral) Med Classific ation: Endocrine losartan 50 mg tablet 15 00:00: 00 Yes [id number] 50 mg DAILY 50 mg DAILY (route: oral) Med Classific ation: Cardiovas cular Therapy Agents Trulicity 0.75 mg/0.5 mL subcutaneou s pen injector 15 00:00: 00 Yes [id number] 0.75 mg WEEKLY 0.75 mg WEEKLY (route: subcutaneo us) Med Classific ation: Endocrine Vital Signs Vital Name Observation Time Observation Value Commen ts Temperature 2025-03-01 12:16:00.000 97.8 [degF] Temperature 2025-02-28 12:01:00.000 97.8 [degF] Temperature 2025-02-27 12:37:00.000 97.5 [degF] Temperature 2025-02-26 14:33:00.000 97.4 [degF] Temperature 2025-02-25 12:18:00.000 97.5 [degF] Temperature 2025-02-24 12:18:00.000 97.5 [degF] Temperature 2025-02-23 12:13:00.000 97.4 [degF] Temperature 2025-02-22 13:33:00.000 97.3 [degF] Temperature 2025-02-21 11:00:00.000 98.1 [degF] Temperature 2025-02-20 12:31:00.000 97.4 [degF] Temperature 2025-02-19 13:52:00.000 97.3 [degF] Temperature 2025-02-18 11:59:00.000 97 [degF] Temperature 2025-02-17 13:02:00.000 97.5 [degF] Temperature 2025-02-16 15:40:00.000 97.5 [degF] Temperature 2025-02-15 12:40:00.000 97.5 [degF] Temperature 2025-02-14 09:27:00.000 98.1 [degF] Temperature 2025-02-13 12:31:00.000 98.1 [degF] Temperature 2025-02-13 11:17:00.000 97.5 [degF] Temperature 2025-02-11 11:22:00.000 97.8 [degF] Temperature 2025-02-10 12:36:00.000 97.5 [degF] Temperature 2025-02-09 14:58:00.000 97.5 [degF] Temperature 2025-02-08 13:05:00.000 97.5 [degF] Temperature 2025-02-08 12:55:00.000 97.8 [degF] Temperature 2025-02-06 10:36:00.000 97.6 [degF] Temperature 2025-02-05 12:21:00.000 97.5 [degF] Temperature 2025-02-04 11:58:00.000 98 [degF] Temperature 2025-02-03 11:50:00.000 97.6 [degF] Temperature 2025-02-02 10:55:00.000 97.5 [degF] Temperature 2025-02-01 11:44:00.000 97.5 [degF] Temperature 2025-01-31 10:07:00.000 98 [degF] Temperature 2025-01-30 11:18:00.000 98.1 [degF] Temperature 2025-01-29 12:43:00.000 98 [degF] Temperature 2025-01-28 11:46:00.000 98 [degF] Temperature 2025-01-27 12:00:00.000 97.5 [degF] Temperature 2025-01-26 12:25:00.000 98 [degF] Temperature 2025-01-25 11:37:00.000 97.5 [degF] Temperature 2025-01-24 21:49:00.000 98.1 [degF] Temperature 2025-01-23 10:54:00.000 98.1 [degF] Temperature 2025-01-22 11:34:00.000 97.9 [degF] Temperature 2025-01-21 11:29:00.000 98 [degF] Temperature 2025-01-20 12:56:00.000 97.9 [degF] Temperature 2025-01-19 12:04:00.000 98 [degF] Temperature 2025-01-18 12:46:00.000 98.1 [degF] Temperature 2025-01-17 11:40:00.000 98 [degF] Temperature 2025-01-16 12:13:00.000 97.5 [degF] Temperature 2025-01-15 11:22:00.000 97.8 [degF] Temperature 2025-01-14 11:49:00.000 98 [degF] Temperature 2025-01-13 12:11:00.000 98 [degF] Temperature 2025-01-12 11:16:00.000 98.1 [degF] Temperature 2025-01-11 11:54:00.000 98.1 [degF] Temperature 2025-01-10 11:43:00.000 97.5 [degF] Temperature 2025-01-10 01:30:00.000 98 [degF] Temperature 2025-01-08 11:57:00.000 98 [degF] Temperature 2025-01-07 11:27:00.000 98.1 [degF] Temperature 2025-01-06 12:25:00.000 98.1 [degF] Temperature 2025-01-05 12:10:00.000 98.1 [degF] Temperature 2025-01-04 11:53:00.000 98.1 [degF] Temperature 2025-01-03 21:36:00.000 97.5 [degF] Temperature 2025-01-02 11:27:00.000 97.5 [degF] Temperature 2025-01-01 12:01:00.000 98 [degF] Pulse 2025-02-25 12:18:00.000 88 /min Respirations 2025-02-25 12:18:00.000 18 /min Systolic Blood Pressure 2025-02-25 12:18:00.000 126 mm [Hg] Diastolic Blood Pressure 2025-02-25 12:18:00.000 72 mm [Hg] Plan of Treatment Planned Activity [...] DAILY ] Future Scheduled Test CLINICAL S CASSIDY (SOC/RECERT, 10 DAY, 60 DAY): THE PATIENT IS RECEIVING HOMECARE DUE TO NEW ONSET/EXACERBATION OF: YES RECENT HOSPITALIZATION/INPATIENT ADMISSION RELATED TO: NO NEW OR CHANGED MEDICATIONS PERTINENT TO THE PLAN OF CARE: NO PATIENT LIVING SITUATION/CAREGIVER STATUS: WITH FAMILY SUMMARIZE SKILLED NEED: MEDICATION MANAGEMENT, VITAL SIGN ASSESSMENT, MENTAL STATUS ASSESSMENT AND DIAGNOSIS MANAGEMENT AND MEDICAL [code = CLINICAL SUMMARY (SOC/RECERT, 10 DAY, 60 DAY): THE PATIENT IS RECEIVING HOMECARE DUE TO NEW ONSET/EXACERBATION OF: YES RECENT HOSPITALIZATION/INPATIENT ADMISSION RELATED TO: NO NEW OR CHANGED MEDICATIONS PERTINENT TO THE PLAN OF CARE: NO PATIENT LIVING SITUATION/CAREGIVER STATUS: WITH FAMILY SUMMARIZE SKILLED NEED: MEDICATION MANAGEMENT, VITAL SIGN ASSESSMENT, MENTAL STATUS ASSESSMENT AND DIAGNOSIS MANAGEMENT AND MEDICAL ] Future Scheduled Test SKILLED NU RSE WILL MAINTAIN SITUATIONAL AWARENESS FOR SAFETY AND WILL NOTIFY CLINICAL CLAIMS COUNSEL AND PHYSICIAN/PROVIDER WITH ANY CHANGE IN CONDITION. [code = SKILLED NURSE WILL MAINTAIN SITUATIONAL AWARENESS FOR SAFETY AND WILL NOTIFY CLINICAL CLAIMS COUNSEL AND PHYSICIAN/PROVIDER WITH ANY CHANGE IN CONDITION.] [...] MEDICATIONS DAILY AND PRE-POUR MEDICATIONS TILL NEXT MCC VISIT PER MEDICATION LIST. [code = SKILLED NURSE TO ADMINISTER MEDICATIONS DAILY AND PRE-POUR MEDICATIONS TILL NEXT MCC VISIT PER MEDICATION LIST.] Future Scheduled Test SKILLED NU RSE FOR MEDICATION ADMINISTRATION PER MEDICATION LIST TO BE PERFORMED DAILY [code = SKILLED NURSE FOR MEDICATION ADMINISTRATION PER MEDICATION LIST TO BE PERFORMED DAILY ] Future Scheduled Test SKILLED NU RSE TO PRE-POUR MEDICATION PER MEDICATION LIST TILL NEXT MCC VISIT [code = SKILLED NURSE TO PRE-POUR MEDICATION PER MEDICATION LIST TILL NEXT MCC VISIT ] Future Scheduled Test SKILLED NU [...] Test SKILLED NU RSE FOR O/A OF PATIENT'S RISK FOR VIOLENCE (TOWARD SELF OR OTHERS) AND TO PROVIDE INTERVENTION TECHNIQUES TO PROMOTE SAFETY TO PATIENT AND OTHERS [code = SKILLED NURSE FOR O/A OF PATIENT'S RISK FOR VIOLENCE (TOWARD SELF OR OTHERS) AND TO PROVIDE INTERVENTION TECHNIQUES TO PROMOTE SAFETY TO PATIENT AND OTHERS] Future Scheduled Test SKILLED NU RSE FOR [...] Goal - KNOW ABOUT MY MEDS Goal 2019-11-25 Patient Goal - GIVE MY OWN I NJECTION Goal 2020-01-26 Patient Goal - GIVE MY OWN I NJECTION Goal 2020-03-23 Patient Goal - GIVE MY OWN I NJECTION Goal 2020-05-24 Patient Goal - GIVE MY OWN I NJECTION Goal 2020-07-21 Patient Goal - GIVE MY [...] - GIVE MY OWN I NJECTION Goal 2024-10-28 Patient Goal - GIVE MY OWN I NJECTION Goal 2024-12-28 Patient Goal - GIVE MY OWN I NJECTION Goal 2025-02-25 Patient Goal - GIVE MY OWN I NJECTION Goal Patient Goal - GIVE MY OWN I NJECTION Goal Provider Goal - A PLAN OF CARE WILL BE ESTABLISHED THAT MEETS PATIENT'S MCC NEEDS AND INCLUDES PATIENT GOAL FOR HOME [...] Goal Provider Goal - PATIENT WILL REMAIN SAFE, FREE FROM HOSPITALIZATION, AND ADHERE TO THE SKILLED NURSES PLAN OF CARE THROUGHOUT THE CERTIFICATION PERIOD. Goal Provider Goal [...] Goal - PATIENT WILL REMAIN SAFE IN COMMUNITY WITHOUT EVIDENCE OF INJURY/HARM TO SELF OR OTHERS THROUGHOUT CERTIFICATION PERIOD. Goal Provider Goal - [...] WILL BE STORED IN LOCKBOX FOR SAFETY. Progress Notes Progress Notes <paragraph>[Visit Date: 2024 by WAGNER CALLAWAY RN]:</paragraph><paragraph>PROVIDED CARE: MEDICATION MANAGEMENT, VITAL SIGN ASSESSMENT, MENTAL STATUS ASSESSMENT AND DIAGNOSIS MANAGEMENT AND MEDICAL</paragraph> <paragraph>[Visit Date: 2024 by WAGNER CALLAWAY RN]:</paragraph><paragraph>PROVIDED CARE: MEDICATION MANAGEMENT, VITAL SIGN ASSESSMENT, MENTAL STATUS ASSESSMENT AND DIAGNOSIS MANAGEMENT AND MEDICAL</paragraph> Encounters Start Date/Time End Date/Time Encounter Type Admission Type Attending Clinicians Care Facility Care Department Encounter ID Discharge Date Discharge Status Discharge Condition Discharge Reason Percent Goals Met 2011-01-15 00:00:00 2025-03-01 00:00:00 Outpatient [facility] WAGNER COURTNEY [facility] [id number] 18.42
--- OUTSIDE RECORDS SUMMARY | 2025-03-02 12:12 | XMS_ITS | Encounter Summary ---
Author Organization [employer] Address [address] [facility] 7t [place] [address] Care Team Providers Care Fur Joiner Name Role Phone Name, Marlon CUI Primary Care Provider Eliana Mark PharmD Unavailable Encounter Details Date Type Department Care Team (Late st Contact Info) Description 04/29/[address] [address] Marlon Encarnacion MD [address] [place] [phone] Social History Tobacco Use Types Packs/Day Years Used Date Smoking Tobacco: Never Passive Smoke Exposure: Never Smokeless Tobacco: Never Sex and Gender Information Value Date Recorded Sex Assigned at Male 09/17/2022 10:15 AM EDT Legal Sex Male 10:15 AM EDT Gender Identity Male 09/17/2022 10:15 AM EDT Sexual Orientation Straight 09/17/2022 10 :15 AM EDT COVID-19 Exposure Response Date Recorded In the last 10 days, have yo u been in contact with someone who was confirmed or suspected to have Coronavirus/COVID-19? No / Unsure 04/11/2023 10:35 AM EDT documented as of this encounter Plan of Treatment Upcoming Encounters Date Type Department Care Team (Late st Contact Info) Description 03/16/2025 3:45 PM EDT Office Visit [address] [phone] Marlon Encarnacion MD [address] [place] [phone] 04/21/2025 10:00 AM EDT Medication Management [address] [address] Eliana Mark PharmD [address] [place] [address] 07/14/2025 10:30 AM EDT Office Visit [facility] [address] [place] [address] Robert, Milagros, OD [address] [place] [address] documented as of this encounter Procedures Procedure Name Priority Date/Time Associated Diagnosis Comments COLONOSCOPY Routine 12/26/2019 1:31 PM EST documented in this encounter Results * Colonoscopy (12/26/2019 1:31 PM EST) Colonoscopy Normal Normal Narrative Emily Nuñez - 12/26/2019 1:31 PM EST Recommended 10 year follow up Historical Provider HEALTH MAINTENANCE Final Result documented in this encounter Visit Diagnoses Not on filedocumented in this encounter Care Teams Fur Joiner Relationship Specialty Start Date End Date Name, MD Marlon [address] [place] [address] PCP - General Family Medicine 02/15/16 Eliana Mark, PharmD [address] [place] [address] Pharmacist Internal Medicine 10/09/24 documented as of this encounter
--- OUTSIDE RECORDS SUMMARY | 2025-03-02 12:12 | XMS_ITS | Encounter Summary ---
Author Organization [employer] Address [address] [facility] 7t [place] [address] Care Team Providers Care Computer Meteorologist Name Role Phone Name, Marlon CUI Primary Care Provider Eliana Mark PharmD Unavailable [phone] Encounter Details Date Type Department Care Team (Latest Contact Info) Description 09/17/2019 Abstract [facility] CONVERSION[facility] Dental, Provider, DDS Social History Tobacco Use Types Packs/Day Years Used Date Smoking Tobacco: Never Assessed Sex and Gender Information Value Date Recorded Sex Assigned at Male 09/17/2022 10:15 AM EDT Legal Sex Male 10:15 AM EDT Gender Identity Male 09/17/2022 10:15 AM EDT Sexual Orientation Straight 09/17/2022 10 :15 AM EDT documented as of this encounter Plan of Treatment Upcoming Encounters Date Type Department Care Team (Late st Contact Info) Description 03/16/2025 3:45 PM EDT Office Visit [facility] MEDICINE [address] [place] [phone] Name, MD Marlon [address] [place] [address] 04/21/2025 10:00 AM EDT Medication Management [facility] [address] [place] [address] PuiaLouisEliana, PharmD [address] [place] [address] 07/14/2025 10:30 AM EDT Office Visit [facility] OPTOMETRY [address] [place] [address] RobertMilagros friedman, OD [address] [place] [address] documented as of this encounter Visit Diagnoses Not on filedocumented in this encounter Care Teams Computer Meteorologist Relationship Specialty Start Date End Date Name, MD Marlon [address] [place] [address] PCP - General Family Medicine 02/15/16 Eliana Mark PharmD [address] [place] [address] Pharmacist Internal Medicine 10/09/24 documented as of this encounter
--- OUTSIDE RECORDS SUMMARY | 2025-03-02 12:12 | XMS_ITS | Encounter Summary ---
Author Organization [employer] Address 75 [facility] 7t [place] [address] Care Team Providers Care Field Crop Harvest Worker Name Role Phone Name, Marlon CUI Primary Care Provider [phone] Eliana Mark PharmD Unavailable [phone] Encounter Details Date Type Department Care Team (Latest Contact Info) Description 03/02/2025 Travel Social History Tobacco Use Types Packs/Day Years Used Date Smoking Tobacco: Former Cigarettes Passive Smoke Exposure: Never Smokeless Tobacco: Never Alcohol Use Standard Drinks/Week Comments Never 0 (1 standard drink = 0.6 oz pur e alcohol) Depression Answer Date Recorded Patient Health Questionnaire-9 Score 4 08/18/2024 Patient Health Questionnaire-9 Score 4 08/18/2024 Last PHQ-9: Questionnaire Data Not on file 1 Depression Answer Date Recorded Patient Health Questionnaire-2 Score 0 08/18/2024 Sex and Gender Information Value Date Recorded Sex Assigned at Male 09/17/2022 10:15 AM EDT Legal Sex Male 10:15 AM EDT Gender Identity Male 09/17/2022 10:15 AM EDT Sexual Orientation Straight 09/17/2022 10 :15 AM EDT documented as of this encounter Plan of Treatment Upcoming Encounters Date Type Department Care Team (Late st Contact Info) Description 03/16/2025 3:45 PM EDT Office Visit [facility] MEDICINE [address] [place] [address] [phone] Name, MD Marlon [address] [place] [address] 04/21/2025 10:00 AM EDT Medication Management [facility] [address] [place] [address] [phone] PuiaEliana, PharmD [address] [place] [address] 07/14/2025 10:30 AM EDT Office Visit [facility] OPT[facility] [address] [place], [place] [phone] Milagros Jones, OD [address] [place] [address] documented as of this encounter Visit Diagnoses Not on filedocumented in this encounter Additional Health Concerns Assessment Noted Time PHQ-9 Depression Total Score: 4 08/18/20 24 3:57 PM EDT documented as of this encounter Care Teams Field Crop Harvest Worker Relationship Specialty Start Date End Date Name, MD Marlon [address] [place] [address] PCP - General Family Medicine 02/15/16 Eliana Mark PharmD [address] [place] [address] Pharmacist Internal Medicine 10/09/24 documented as of this encounter
--- OUTSIDE RECORDS SUMMARY | 2025-03-02 12:12 | XMS_ITS | Clinical Summary ---
Author Organization [employer] Address [address] [facility] 7t [place] [address] Care Team Providers Care Special Education Instructor Name Role Phone Name, Marlon CUI Primary Care Provider [phone] Eliana Mark PharmD Unavailable [phone] Allergies No known active allergies Medications benztropine (Cogentin) 1 MG tablet Take 1 mg by mouth in the morning. 3 Active divalproex (Depakote ER) 500 MG 24 hr tablet TAKE 3 TABLETS BY MOUTH EVERY DAY AT BEDTIME 3 Active risperiDONE (RisperDAL) 2 MG tablet Take 2 mg by mouth at bedtime. 3 Active RisperDAL Consta 50 MG injection INJECT ONE (1) EACH INTO THE MUSCLE EVERY 2 WEEKS 3 Active atorvastatin (Lipitor) 20 MG tabletIndication s:High cholesterol,Type 2 diabetes mellitus with obesity (CMS/HCC) (CMS/HCC) Take 1 tablet (20 mg) by mouth Once per day. 90 tablet 3 4 Active Blood Glucose Monitoring Suppl (FreeStyle Lite) deviceIndication s:Type 2 diabetes mellitus with obesity (CMS/HCC) (CMS/HCC) Inject 1 each under the skin Once per day. Use to test blood sugar as directed 1 each 4 Active glucose blood (FREESTYLE LITE) test stripIndications :Type 2 diabetes mellitus with obesity (CMS/HCC) (CMS/HCC) USE TO TEST BLOOD SUGAR ONCE DAILY (FASTING) 100 each 11 4 Active FreeStyle lancetsIndicatio ns:Type 2 diabetes mellitus with obesity (CMS/HCC) (CMS/HCC) 1 each by Other route Once per day. Use to test blood sugar once daily (fasting) as directed 100 each 3 4 Active Dulaglutide (Trulicity) 0.75 MG/0.5ML solution auto-injectorInd ications:Type 2 diabetes mellitus with obesity (CMS/HCC) ([facility]) Inject 0.75 mg under the skin 1 (one) time per week. 2 mL 11 5 Active metFORMIN XR (Glucophage-XR) 500 MG 24 hr tabletIndication s:Type 2 diabetes mellitus with obesity (CMS/HCC) ([facility]) Take 2 tablets (1,000 mg) by mouth with breakfast and with evening meal. Do not crush, chew, or split. 120 tablet 11 5 01/22/20 26 Active losartan (Cozaar) 50 MG tabletIndication s:Type 2 diabetes mellitus with obesity (CMS/HCC) ([facility]),Hypert ension, unspecified type Take 1 tablet (50 mg) by mouth Once per day. 30 tablet 2 5 Active Active Problems Problem Noted Date Diagnosed Date Hypertension 01/21/2025 History of syphilis 08/18/2024 Tipped teeth 10/28/2023 Dental abscess 10/28/2023 Periodontal disease 10/28/2023 Developmental academic disorder 03/18/2019 11/28/2023 Inhalant abuse, in remission 11/18/201809/2024 [facility] (current) use of oral hypoglycemic byron gs 11/18/2018 11/28/2023 Posterior rhinorrhea 04/24/2017 11/28/2023 Type 2 diabetes mellitus with obesity ([facility]/HCC) 09/24/2016 Bipolar I disorder 03/22/2016 11/28/2023 Hypertriglyceridemia 10/06/2013 Schizophrenia, unspecified 11/18/1959 Resolved Problems Problem Noted Date Diagnosed Date Resolved Date Intellectual disability 04/11/2023 052 03/2023 Encounters Date Type Department Care Team Description 03/02/2025 Orders Only [facility] MEDICINE [address] [place] [address] Name, MD Marlon 03/02/2025 Travel 02/22/2025 Telephone [facility] OPT[facility] [address] [place] [address] Milagros Jones OD 02/11/2025 1:30 PM EDT Office Visit [facility] [address] [place] [address] Robert, Milagros, OD Diabetes mellitus type 2 without retinopathy (CMS/HCC) (Primary Dx); Glaucoma suspect of both eyes; Nuclear senile cataract of left eye; Pseudophakia of right eye; Presbyopia 02/11/2025 Travel 01/21/2025 Orders Only [facility] MED[facility] [address] [place] [address] NameMarlon MD Hypertension, unspecified type (Primary Dx) 01/21/2025 Orders Only [facility] MED[facility] [address] [place] [address] Marlon Encarnacion MD 01/21/2025 Travel 12/29/2024 Telephone [facility] [address] [place] [address] Joaquín Fox MA chartprep 12/10/[address] [address] Marlon Encarnacion MD 12/09/[address] [address] Eliana Mark, PharmD from Last 3 Months Immunizations Name Administration Dates Next Due Hep B, adult 12/30/1998,07/21/1998,05/19/1998 Influenza Quadrivalent Adjuvanted 09/11/2023 Influenza injectable quadriv alent IIV4 with preservative 08/26/2019,09/01/2018,09/15/2015 Influenza injectable quadriv alent preservative free 12/21/2021,11/25/2020,08/21/2017,08/28 Influenza, High Dose Seasona l, Preservative Free 08/18/2024 Influenza, IIV3, injectable 08/26/2014, 1 Influenza, Split (incl. elida fied surface antigen) 09/14/2013,08/20/2012 Elliott SARS-CoV-2 Vaccination 02/27/2021 Pfizer Covid-19 Vaccine 12+ 10/09/2024 Pneumococcal Conjugate PCV 20 10/09/2024 Pneumococcal Polysaccharide PPSV23 06/09/2018 TD (adult), 2 Lf tetanus tox oid, preservative free, adsorbed 03/14/2006 Tdap 10/29/2024,08/20/2012 Family History Medical History Relation Name Comments Breast cancer Mother Relation Name Status Comments Mother Alive Social History Tobacco Use Types Packs/Day Years Used Date Smoking Tobacco: Former Cigarettes Passive Smoke Exposure: Never Smokeless Tobacco: Never Tobacco Cessation:Counseling Given: Not Answered Alcohol Use Standard Drinks/Week Comments Never 0 [...] Orientation Straight 09/17/2022 10 :15 AM EDT Last Filed Vital Signs Vital Sign Reading Time Taken Comments Blood Pressure 132/78 03/02/2025 10:08 AM EDT Pulse 97 10/29/2024 8:57 AM EST Temperature 35.8 ??C (96.5 ??F) 10/29/2024 8:57 AM ES T Respiratory Rate 18 10/29/2024 8:57 AM EST Oxygen Saturation 98% 10/29/2024 8:57 AM EST Inhaled Oxygen Concentration - - Weight 89.5 kg (197 lb 6.4 oz) 10/29/2024 8:57 A M EST Height 167.6 cm (5' 6 ) 08/18/2024 3:55 PM EDT Body Mass Index 31.86 08/18/2024 3:55 PM EDT Plan of Treatment Upcoming Encounters Date Type Department Care Team (Late st Contact Info) Description 03/16/2025 3:45 PM EDT Office Visit [facility] MED[facility]INE [address] [place] [address] Name, MD Marlon [address] [place] [phone] 04/21/2025 10:00 AM EDT Medication Management [facility] [address] [place] [address] Eliana Mark, PharmD [address] [place] [address] 07/14/2025 10:30 AM EDT Office Visit [facility] OPT[facility] [address] [place] [address] Robert, Milagros, OD [address] [place] [address] Health Maintenance Due Date Last Done Comments CT Colonography 1958 FIT DNA/Cologuard 1958 FIT 1958 FOBT 1958 SDOH Screening 1958 Sigmoidoscopy 1958 Hepatitis C Screening 1976 Zoster Vaccines (1 of 2) 2008 Dental Prophylaxis 11/19/2022 05/18/2022, 1 , 01/15/2019, Additional history exists Dental Oral Exam 04/29/2024 10/28/2023, 11/2021, 09/17/2019, Additional history exists Dental X-Ray: Bitewings 10/29/2024 10/28/20 23, 05/18/2022, 09/17/2019, Additional history exists Diabetes: Hemoglobin A1C 04/23/2025 025, 10/29/2024, 08/18/2024 Depression Screening 08/18/2025 08/18/2024, 08/18/20 24 Diabetes: Urine Protein Screening 08/21/2025 08/21/2024 Lipid Panel 08/21/2025 08/21/2024 Alcohol/Substance Use Screening 10/29/2025 10/29/2024 Diabetes: Foot Exam 10/29/2025 10/29/2024, 10/29/2024, 10/29/2024, Additional history exists Tobacco Screening 02/22/2026 02/22/2025 Dental X-Ray: Full Mouth 10/29/2026 10/28/2023, 08/20 Eye Exam 02/11/2027 02/11/2025, 01/17, 02/11/2025, Additional history exists Colonoscopy 12/26/2029 12/26/2019 Colorectal Cancer Screening 12/26/2029 RSV Patients and Patients Aged 60 years or older (1 - 1-dose 75+ series) 2033 DTaP/Tdap/Td Vaccines (3 - Td or Tdap) 10/29/2034 10/29/2024, 08/20/2012, 03/14/2006 Hepatitis B Vaccines Completed 12/30/1998, 07/21/1998, 05/19/1998 Influenza Vaccine Completed 08/18/2024, , 12/21/2021, Additional history exists COVID-19 Vaccine Completed 10/09/2024, , 09/14/2022, Additional history exists Pneumococcal Vaccine: 50+ Years Completed 10/09/2024, 06/09/2018 HIB Vaccines Aged Out No longer eligi ble based on patient's age to complete this topic HPV Vaccines Aged Out No longer eligi ble based on patient's age to complete this topic Hepatitis A Vaccines Aged Out No long er eligible based on patient's age to complete this topic IPV Vaccines Aged Out No longer eligi ble based on patient's age to complete this topic Meningococcal Vaccine Aged Out No josé miguel sunshine eligible based on patient's age to complete this topic RSV under 20 months Aged Out No longe r eligible based on patient's age to complete this topic Rotavirus Vaccines Aged Out No longer eligible based on patient's age to complete this topic Procedures Procedure Name Priority Date/Time Associated Diagnosis Comments BASIC METABOLIC PANEL Routine 03/02/2025 10:17 AM EDT OPTIC DISC PHOTOS - OU - BOTH EYES Routine 02/11/2025 1:30 PM EDT Glaucoma suspect of both eyes POCT GLYCATED HEMOGLOBIN, TOTAL Routine 01/21/2025 5:38 PM EST Type 2 diabetes mellitus with obesity (CMS/HCC) (CMS/HCC) VITAMIN B12 Routine 01/21/2025 11:10 AM EST Hypertension, unspecified type BASIC METABOLIC PANEL Routine 01/21/2025 11:10 AM EST ALBUMIN, RANDOM URINE W/CREATININE Routine 08/21/2024 9:03 AM EDT Type 2 diabetes mellitus with obesity (CMS/HCC) ([facility]) Hyperglycemia LIPID PANEL, STANDARD Routine 08/21/2024 9:03 AM EDT Type 2 diabetes mellitus with obesity (CMS/HCC) ([facility]) Hyperglycemia INTRAORAL - COMPLETE SERIES OF RADIOGRAPHIC IMAGES Routine 10/28/2023 11:00 AM EST PERIODIC ORAL EVALUATION - ESTABLISHED PATIENT Routine 10/28/2023 11:00 AM EST PROPHYLAXIS - ADULT Routine 05/18/2022 1 2:00 AM EDT HM COLONOSCOPY Routine 12/26/2019 1:31 PM EST from Last 3 Months or Most Recently Relevant to Health Maintenance Results * (ABNORMAL) Basic Metabolic Panel (03/02/2025 10:17 AM EDT) Only the most recent of2 resultswithin the time period is included. Sodium 135 135 - 145 mmol/L [facility] Potassium 3.9 3.3 - 5.1 mmol/L [facility] Chloride 103 96 - 108 mmol/L [facility] Carbon Dioxide 20(L) 22 - 29 mmol/L [facility] Anion Gap 16 12 - 20 [facility] Urea Nitrogen (BUN) 10 9 - 16 mg/dL [facility] Creatinine, Serum 0.77 0.5 - 1.4 mg/dL [facility] Estimated Glomerular Filt Rate >60 [facility] Comment:Chronic Kidney Disea se: Estimated GFR < 60 mL/min/1.43e6Yvbotl Kidney Disease: Estimated GFR < 15 mL/min/1.73m2 Glucose 185(H) 60 - 115 mg/dL [facility] Calcium 9.8 8.4 - 10.2 mg/dL [facility] 03/02/2025 10:1 7 AM EDT 03/02/2025 11:02 AM EDT us Marlon Encarnacion MD LAB BLOOD ORDERABLES Final Resul t Performing Organization Address City/[facility]/ZIP Co de Phone Number [facility] [address] [place] [phone] * Optic Disc Photos - OU - Both Eyes (02/11/2025 1:30 PM EDT) Milagros Martínez, OD - 02/22/2025 12:19 PM EDT Images from the original result were not included. Right Eye Progression has no prior data. Findings include thinning of rim. Left Eye Progression has no prior data. Findings include thinning of rim. Notes OPTIC NERVE PHOTO INTERPRETION Optic Nerve Photo Interpretation Test Details: Photo quality: OD: good OS: poor Cup to disc ratio: OD vertical: 0.75 OD horizontal: 0.75 OS vertical: 0.65 OS horizontal: 0.65 Rim characteristics: ?? OD:pink, thin 360 degrees OS: pink, thin 360 degrees Assessment and Plan: Glaucoma suspect in both eyes. Will have him return in 4-5 months for a glaucoma workup. Milagros Jones OD OPHTH PHOTOGRAPHY Final Resul t * (ABNORMAL) POCT HGB A1C (01/21/2025 5:38 PM EST) Hemoglobin A1C 10.7(A) 4.0 - 6.0 % Blood 01/21/2025 5:38 PM EST Result [facility] us Marlon Encarnacion MD POINT OF CARE TEST ENTER/EDIT OR DERABLES Final Result * Vitamin B12 (01/21/2025 11:10 AM EST) Vitamin B12 765 200 - 900 pg/mL [facility] Comment:NORMAL 200-900 PG/ML INDETERMINATE 160-199 PG/ML DEFICIENT < 160 PG/ML 01/21/2025 11:1 0 AM EST 01/21/2025 11:41 AM EST us Marlon Encarnacion MD LAB BLOOD ORDERABLES Final Resul t Performing Organization Address City/[facility]/ZIP Co de Phone Number [facility] [address] [place] [address] [phone] * Albumin, Random Urine W/Creatinine (08/21/2024 9:03 AM EDT) Creatinine, Urine 59.39 mg/dL [facility] Microalbumin Urine 11.0 mg/L [facility] Microalbum Creatinine Ratio Ur 18.5 <30 ug/mg cr [facility] Comment:Albumin/Creatinine R atio Reference Ranges: Normal: < 30 ug/mg creatinine Microalbuminuria: 30 - 300 ug/mg creatinineClinical Albuminuria: > 300 ug/mg creatinine Urine (Urine, Random) 08/21/2024 9:03 AM EDT 08/21/2024 11:17 AM EDT us Marlon Name LAB URINE ORDERABLES Final Resul t [facility] [address] [place] [phone] [phone] * (ABNORMAL) Lipid Panel, Standard (08/21/2024 9:03 AM EDT) Triglycerides 182(H) <150 mg/dL [facility] Comment:Desirable Triglyceri de: less than 150 mg/dLBorderline High Triglyceride 150-199 mg/dLHigh Triglyceride: 200-499 mg/dLVery High Triglyceride: greater than or equal to 5OO mg/dL Cholesterol 132 <200 mg/dL [facility] Comment:Desirable Cholestero l: less than 200 mg/dLBorderline High Cholesterol: 200-239 mg/dLHigh Cholesterol: greater than 239 mg/dL LDL Cholesterol Calculated 59 <100 mg/dL [facility] Comment:Desirable LDL: less than 100 mg/dLNear Optimal/Above Optimal LDL: 110- 129 mg/dLBorderline High LDL: 130-159 mg/dLHigh LDL: 160-189 mg/dLVery High LDL: greater than or equal to 190 mg/dL HDL Cholesterol 37(L) >40 mg/dL [facility] Comment:Desirable HDL: great er than 40 mg/dL Note: This HDL assay may give artificially low results in patients with liver disease. Blood Venous blood specimen / Unknown 08/21/2024 9:03 AM EDT 08/21/2024 11:06 AM EDT Marlon Encarnacion MD LAB BLOOD ORDERABLES Final Resul t [facility] [address] [place] [address] [phone] * Hm Colonoscopy (12/26/2019 1:31 PM EST) Colonoscopy Normal Normal Narrative Emily Nuñez - 12/26/2019 1:31 PM EST Recommended 10 year follow up Historical Provider HEALTH MAINTENANCE Final Result from Last 3 Months or Most Recently Relevant to Health Maintenance Insurance [facility] Member Subscriber Plan / Payer ( fective 2018-Present) Name:Abhijeet Mary Relation to Subscriber:Self Name:Abhijeet Mary Payer ID:Not on file Group ID:[id number] Type:Not on file Address: [address] - [place] Member Subscriber Plan / Payer (Ef fective 2024-Present) Name:Abhijeet Mary Relation to Subscriber:Self Name:Abhijeet Mary Payer ID:Not on file Group ID:[id number] Type:Not on file Address: [address] [facility] Care Teams Special Education Instructor Relationship Specialty Start Date End Date Name, MD Marlon [address] [place] [address] PCP - General Family Medicine 02/15/16 Eliana Mark PharmD [address] [place] [address] Pharmacist Internal Medicine 10/09/24
--- OUTSIDE RECORDS SUMMARY | 2025-03-02 12:12 | XMS_ITS | Encounter Summary ---
Author Organization [employer] Address [address] [facility] 7t [place] [address] Care Team Providers Care Sales Representative Graphic Art Name Role Phone Name, Marlon CUI Primary Care Provider Eliana Mark PharmD Unavailable Encounter Details Date Type Department Care Team (Latest Contact Info) Description 05/18/2022 Abstract [facility] CONVERSIONS Dental, Provider, DDS Social History Tobacco [...] Description 03/16/2025 3:45 PM EDT Office Visit [facility] MEDICINE [address] [place] [address] Name, MD Marlon [address] [place] [address] 04/21/2025 10:00 AM EDT Medication Management [facility] MEDICINE [address] [place] [address] PuiaLouisEliana, PharmD [address] [place] [address] 07/14/2025 10:30 AM EDT Office Visit [facility] OPTOMETRY [address] [place] [address] Milagros Jones, OD [address] [place] [address] documented as of this encounter Visit Diagnoses Not on filedocumented in this encounter Care Teams Sales Representative Graphic Art Relationship Specialty Start Date End Date Name, MD Marlon [address] [place] [address] PCP - General Family Medicine 02/15/16 Eliana Mark PharmD [address] [place] [address] Pharmacist Internal Medicine 10/09/24 documented as of this encounter
--- OUTSIDE RECORDS SUMMARY | 2025-03-02 12:12 | XMS_ITS | Encounter Summary ---
Author Organization [employer] Address [address] [facility] 7t [place] [address] Care Team Providers Care Prison Keeper Name Role Phone Name, Marlon CUI Primary Care Provider Eliana Mark PharmD Unavailable [phone] Encounter Details Date Type Department Care Team (Late st Contact Info) Description 03/02/2025 Orders Only [facility] MEDICINE [address] [place] [address] [phone] Name, MD Marlon [address] [place] [address] [phone] Social History Tobacco Use Types Packs/Day Years [...] Description 03/16/2025 3:45 PM EDT Office Visit [address] [address] Name, MD Marlon [address] [place] [phone] 04/21/2025 10:00 AM EDT Medication Management [facility] MEDICINE [address] [place] [address] Eliana Mark, PharmD [address] [place] [address] 07/14/2025 10:30 AM EDT Office Visit [facility] OPTOMETRY [address] [place] [address] Robert, Milagros, OD [address] [place] [address] documented as of this encounter Procedures Procedure Name Priority Date/Time Associated Diagnosis Comments BASIC METABOLIC PANEL Routine 03/02/2025 10:17 AM EDT documented in this encounter Results * (ABNORMAL) Basic Metabolic Panel (03/02/2025 10:17 AM EDT) Sodium 135 135 - 145 mmol/L [facility] Potassium 3.9 3.3 - 5.1 mmol/L [facility] Chloride 103 96 - 108 mmol/L [facility] Carbon Dioxide 20(L) 22 - 29 mmol/L [facility] Anion Gap 16 12 - 20 [facility] Urea Nitrogen (BUN) 10 9 - 16 mg/dL [facility] Creatinine, Serum 0.77 0.5 - 1.4 mg/dL [facility] Estimated Glomerular Filt Rate >60 [facility] Comment:Chronic Kidney Disea se: Estimated GFR < 60 mL/min/1.08r4Lvnvct Kidney Disease: Estimated GFR < 15 mL/min/1.73m2 Glucose 185(H) 60 - 115 mg/dL [facility] Calcium 9.8 8.4 - 10.2 mg/dL [facility] 03/02/2025 10:1 7 AM EDT 03/02/2025 11:02 AM EDT us Marlon Encarnacion MD LAB BLOOD ORDERABLES Final Resul t [facility] [address] [place] [address] [phone] documented in this encounter Visit Diagnoses Not on filedocumented in this encounter Additional Health Concerns Assessment Noted Time PHQ-9 Depression Total Score: 4 08/18/20 24 3:57 PM EDT documented as of this encounter Care Teams Prison Keeper Relationship Specialty Start Date End Date Name, MD Marlon [address] [place] [address] PCP - General Family Medicine 02/15/16 Eliana Mark PharmD [address] [place] [address] Pharmacist Internal Medicine 10/09/24 documented as of this encounter
--- OUTSIDE RECORDS SUMMARY | 2025-03-02 12:12 | XMS_ITS | Encounter Summary ---
Author Organization [employer] Address [address] [facility] 7t [place] [address] Care Team Providers Care Blind Hooker Name Role Phone Name, Marlon CUI Primary Care Provider [phone] Eliana Mark PharmD Unavailable [phone] Encounter Details Date Type Department Care Team (Late st Contact Info) Description 01/08/2023 Orders Only [facility] MEDICINE [address] [place] [address] Juany Napier LPN Social History Tobacco Use Types Packs/Day Years [...] Description 03/16/2025 3:45 PM EDT Office Visit [facility] MED[facility]INE [address] [place] [address] Name, MD Marlon [address] [place] [address] 04/21/2025 10:00 AM EDT Medication Management [facility] [address] [place] [address] PuEliana golden, PharmD [address] [place] [address] 07/14/2025 10:30 AM EDT Office Visit [facility] OPTOMETRY [address] [place] [address] Milagros Jones OD [address] [place] [address] documented as of this encounter Visit Diagnoses Not on filedocumented in this encounter Care Teams Blind Hooker Relationship Specialty Start Date End Date Name, MD Marlon [address] [place] [address] PCP - General Family Medicine 02/15/16 Eliana Mark, Delfina [address] [place] [address] Pharmacist Internal Medicine 10/09/24 documented as of this encounter
--- OUTSIDE RECORDS SUMMARY | 2025-03-02 12:12 | XMS_ITS | Encounter Summary ---
Author Organization [employer] Address [address] [facility] 7t [place] [address] Care Team Providers Care Hydraulic Lift Operator Name Role Phone Name, Marlon CUI Primary Care Provider Eliana Mark PharmD Unavailable Encounter Details Date Type Department Care Team (Late st Contact Info) Description 02/04/2023 Orders Only [facility] MEDICINE [address] [place] [address] Juany Napier LPN Social History Tobacco Use [...] 03/16/2025 3:45 PM EDT Office Visit [facility] MEDICINE [address] [place] [address] Name, MD Marlon [address] [place] [address] 04/21/2025 10:00 AM EDT Medication Management [facility] MEDICINE [address] [place] [address] PuEliana golden, PharmD [address] [place] [address] 07/14/2025 10:30 AM EDT Office Visit [facility] OPTOMETRY [address] [place] [address] Milagros Jones OD [address] [place] [address] documented as of this encounter Visit Diagnoses Not on filedocumented in this encounter Care Teams Hydraulic Lift Operator Relationship Specialty Start Date End Date Name, MD Marlon [address] [place] [address] PCP - General Family Medicine 02/15/16 Eliana Mark, Delfina [address] [place] [address] Pharmacist Internal Medicine 10/09/24 documented as of this encounter
== END 2025-03-02 10:16 | disposition home or self-care (01) ==
LOC: HO.HHCL 10:15
PROVIDERS: Visit Provider Internal Medicine Geriatric Medicine
DX: I10 Essential (primary) hypertension (principal)
CPT/HCPCS: 36415; 80048

== ENCOUNTER 2025-03-29 18:23 | Emergency (ER) | payer OTHER, SELFPAY ==
--- NOTE | ~2025-03-29 | US_ITS ---
CLINICAL HISTORY: fever ams, with elevated lfts US abdomen limited gallbladder Comparison: None Findings: Gallbladder unremarkable without stones or wall thickening. Common duct 4.2 mm diameter. Positive ultrasonographic Espinoza sign. Impression: No significant abnormalities. This document has been electronically signed by: Phong Whitney MD on 03/29/2025 21:35:48
--- NOTE | ~2025-03-29 | CT_ITS ---
CLINICAL HISTORY: abnormal lfts CT abdomen and pelvis with contrast Comparison: None Findings: Small posterior right lower lobe nodular densities. Largest measures 8 mm in diameter. Question acute versus chronic processes. Nonemergent chest CT may be of value. Trace bilateral pleural effusions noted. Minimal lingular and lower lobe atelectasis. Degenerative change lumbar spine and hips. No acute bony abnormality noted. Cardiomegaly with coronary artery calcification. Hepatomegaly with fatty infiltration of the liver. No focal abnormality in liver or spleen. Pancreas and adrenal glands unremarkable. Gallbladder is within normal limits. No significant focal renal abnormalities. No renal stones or hydronephrosis. Abdominal aorta is normal in caliber. No free fluid or adenopathy in the pelvis. No diverticulitis. Appendix unremarkable. Impression: Trace bilateral pleural effusions with lung base atelectasis Indeterminate right lower lobe nodular densities, question acute versus chronic Nonemergent chest CT may be of value No acute process abdomen or pelvis This document has been electronically signed by: Phong Whitney MD on 03/29/2025 22:00:31
--- NOTE | ~2025-03-29 | CT_ITS ---
CLINICAL HISTORY: fever, ams CT head without contrast Comparison: None Findings: No intracranial mass, midline shift, hydrocephalus, or acute hemorrhage. Mild chronic ischemic white matter disease without volume loss. No acute process in sinuses or mastoids. No acute bony abnormality. Impression: No acute intracranial process This document has been electronically signed by: Phong Whitney MD on 03/29/2025 20:12:42
--- NOTE | ~2025-03-29 | XR_ITS ---
CLINICAL HISTORY: fever 1 view chest x-ray Comparison: None Findings: Lungs are clear without acute infiltrates. No pneumothorax. Heart size enlarged. No acute bony abnormalities. Impression: No acute processes This document has been electronically signed by: Phong Whitney MD on 03/29/2025 19:53:39
[2025-03-29 18:43] VITALS: BP 110/66; BP 114/71; PULSE 103; PULSE 110; RESP 16; TEMP 38.7; O2SAT 95; BMI 26.7
--- NOTE | 2025-03-29 18:54 | ECG_ITS ---
Test Reason : WEAKNESS Blood Pressure : */* mmHG Vent. Rate : 103 BPM Atrial Rate : 103 BPM P-R Int : 176 ms QRS Dur : 98 ms QT Int : 326 ms P-R-T Axes : 34 -56 8 degrees QTcB Int : 427 ms Sinus tachycardia Left axis deviation Incomplete right bundle branch block Inferior infarct (cited on or before 03-May-2022) Possible Anterior infarct , age undetermined Abnormal ECG When compared with ECG of 03-May-2022 12:00, No significant change was found Referred By: Dalton Mercado Electronically Signed By: SYDNEY LUCAS MD
--- NOTE | 2025-03-29 19:09 | ED.GENADULT ---
HPI - General Adult General Chief complaint: Overdose Stated complaint: OD RIPSPERIDONE, HYPERENSIVE, LETHARGIC Time Seen by Provider: 03/29/25 18:50 Source: patient and EMS Mode of arrival: EMS Limitations: altered mental status History of Present Illness ED Provider: Dr. Mercado HPI narrative: 64-year-old with a past medical history significant for diabetes hypertension ADHD on risperidone. per EMS the patient took too much of his risperidone per the who is not here patient is very limited historian he was able to tell me the push was the president and that it is Saturday. He is altered but intermittently he is answering questions appropriately he was able to push and pull has a completely normal neuro exam but then struggled to move his tongue from side to side but the rest of the neuro exam was unremarkable patient denies overdose but is unable to tell me what medications he is on he has no previous visits here the polyp any of his past medical history. of note he does arrive febrile but has no signs of complications of too much risperidone including myoclonus or serotonin syndrome Related Data Allergies Allergy/AdvReac Type Severity Reaction Status Date / Time No Known Allergies Allergy Mild NOT Verified 03/29/25 18:46 APPLICABLE Review of Systems Review of Systems: Review of systems: General: altered mental status fever Patient denies recent illness or falls Musculoskeletal: Denies back pain or body aches or other injuries HEENT: denies headache, runny nose, ear pain Respiratory: denies shortness of breath, cough Cardiovascular: no chest pain or palpitations : denies dysuria, frequency Abdomen: no nausea vomiting denies abdominal pain Extremities: no swelling, no pain Skin: no diaphoresis Yes all other systems are reviewed and are negative [facility] Past Medical History Medical History ADHD Diabetes Social History Social History Alcohol intake: never Patient Tobacco Use Status: Never used Tobacco Advance Directives: No Advance Directives Information Provided: Yes Physical Exam ED Vital Signs: Vital Signs - 24 hr 03/29/25 18:43 03/29/25 19:58 Temperature 101.6 F H 99.3 F Pulse Rate 103 H 94 Respiratory Rate 16 25 H Blood Pressure 114/71 110/62 Pulse Oximetry 95 91 L Oxygen Delivery Method Room Air Nasal Cannula Oxygen Flow Rate 2 BMI result Body Mass Index 26.7 General: Well-appearing well-nourished in no signs of distress HEENT: Normocephalic atraumatic Neck: No signs of JVD, no masses no tenderness or lymphadenopathy Cardiovascular: Regular rate and rhythm Respiratory: Clear to auscultation bilaterally Abdomen: Soft nontender no masses rectal exam performed guiac negative quality assurance manager confirmed. Extremities: Normal pedal pulses no signs of edema Skin: Dry warm no rashes Back: No tenderness full ROM Course Reevaluation(s) Reevaluation #1: with his fever I will start the patient antibiotics now as well as fluids and reassessment Reevaluation #2: CT and US are still pending I will sign out to Dr. Escobar pending US Ct and admission. Time: 20:54 Medications Administered Generic Name Dose Route Start Last Admin Trade Name Freq PRN Reason Stop Dose Admin Cefepime HCl 2 gm in 50 mls @ 100 mls/hr 03/29/25 20:00 03/29/25 20:03 Maxipime IV 100 mls/hr Q24H DUNIA Administration Discontinued Medications Generic Name Dose Route Start Last Admin Trade Name Freq PRN Reason Stop Dose Admin Sodium Chloride 1,000 mls @ 999 mls/hr 03/29/25 19:00 03/29/25 19:48 Ns IV 03/29/25 20:00 999 mls/hr .Q1H1M DUNIA Administration Acetaminophen 1,000 mg in 100 mls @ 400 mls/hr 03/29/25 18:54 03/29/25 19:32 Ofirmev IV 03/29/25 19:08 Infused ONCE ONE Infusion Sodium Chloride 1,000 mls @ 999 mls/hr 03/29/25 19:45 03/29/25 19:48 Ns IV 03/29/25 20:45 999 mls/hr .Q1H1M DUNIA Administration Iohexol 85 ml 03/29/25 20:46 03/29/25 20:47 Iohexol 350 Mg/Ml 100 Ml Infus..Btl IV 03/29/25 20:47 85 ml ONCE ONE Administration Ketorolac Tromethamine 15 mg 03/29/25 18:54 03/29/25 19:16 Ketorolac Tromethamine 15 Mg/Ml Vial IVPUSH 03/29/25 18:55 15 mg ONCE ONE Administration Medical Decision Making Medical Decision Making [facility] Narrative: I will get CTA of the head to make sure this is an intracranial issue I will check labs give the patient fluids Tylenol and get a complete septic workup as well as troponins and ammonia and alcohol level. Differential Diagnosis Differential Diagnoses: The differential diagnosis associated with the presentation includes intracranial injury strokes in the differential very at this likely with a normal neuro exam sepsis altered mental status dehydration electrolyte derangement medication related causing her altered mental st sendI w Admission/Observation Consideration of admission/observation: Escalation of care including admission/observation considered Consult Healthcare Provider Management of the patient was discussed with: Hospitalist Lab Data [facility] Lab Attestation statement: I reviewed the patient's lab results. 03/29/25 19:20 03/29/25 19:20 Labs: Lab Results 03/29/25 03/29/25 Range/Units 19:20 19:29 WBC 7.6 (4.8-10.8) X10*3/uL RBC 4.73 (4.60-5.80) X10*6/uL Hgb 12.9 L (14.0-18.0) g/dl Hct 36.8 L (42.0-52.0) % MCV 77.8 L (80.0-98.0) fL MCH 27.3 (27.0-33.0) pg MCHC 35.1 (31.0-36.0) g/dl RDW 14.7 (11.0-16.0) % Plt Count 225 (160-400) X10*3/uL MPV 11.4 (9.4-12.4) fL Immature Gran % (Auto) 0.3 (0.0-0.4) % Neut % (Auto) 53.9 (45-73) % Lymph % (Auto) 38.9 (20-40) % [place] % (Auto) 6.0 (2-11) % Eos % (Auto) 0.0 (0-4) % Baso % (Auto) 0.9 (0-2) % Lymph # (Auto) 2.9 (1.2-4.9) X10*3/uL [place] # (Auto) 0.5 (0.1-1.2) X10*3/uL Eos # (Auto) 0.0 (0.0-0.4) X10*3/uL Baso # (Auto) 0.1 (0.0-0.2) X10*3/uL Abs Immat Gran (auto) 0.02 (0.00-0.03) X10*3/uL Absolute Neuts (auto) 4.1 (2.0-8.3) x10*3/uL Absolute Nucleated RBC 0.000 (0.0-0.012) X10*3/uL Nucleated RBC % (auto) 0.0 (0.0-0.2) /100WBC Smear Tech's Comments VERIFIED PT 12.9 H (10.9-12.4) SEC INR 1.1 (0.9-1.1) APTT 30.3 (26.0-36.8) SEC VBG pH 7.42 (7.32-7.43) VBG pCO2 34 mmHg VBG pO2 45 mmHg VBG HCO3 22 (22-26) mmol/L VBG O2 Saturation 71.0 % VBG Base Excess -1.4 mmol/L Sodium 130 L (135-145) mmol/L Potassium 4.0 (3.3-5.1) mmol/L Chloride 99 (96-108) mmol/L Carbon Dioxide 21 L (22-29) mmol/L Anion Gap 14 (12-20) BUN 14 (9-16) mg/dL Creatinine 0.96 (0.5-1.4) mg/dL Estim Creat Clear Calc 68.3 Estimated GFR > 60 Random Glucose 175 H (60-115) mg/dL Lactic Acid 2.8 H* (0.5-2.0) mmol/L Calcium 8.7 D (8.4-10.2) mg/dL Magnesium 1.8 (1.6-2.6) mg/dL Total Bilirubin 0.5 (0.0-1.0) mg/dL Direct Bilirubin 0.3 (0.0-0.5) mg/dL AST 193 H (5-37) U/L ALT 165 H (0-40) U/L Alkaline Phosphatase 132 H (39-117) U/L Ammonia 50 (13-55) umol/L Total Creatine Kinase 382 H (38-174) U/L Troponin I High Sens 9.9 (<3.5-35.0) ng/L Total Protein 6.9 (6.5-8.0) g/dL Albumin 3.8 (3.5-5.0) g/dL Lipase 65 (8-78) U/L Beta-Hydroxybutyrate 0.32 H (0.02-0.27) mmol/L Ethyl Alcohol < 10 mg/dL Influenza Type A (PCR) NEGATIVE (Negative) Influenza Type B (PCR) NEGATIVE (Negative) RSV RNA Qual (PCR) NEGATIVE (Negative) SARS-CoV-2 RNA (RT-PCR) NEGATIVE (Negative) Independent Interpretation I performed an independent interpretation of an: EKG and Plain X-Ray Interpretation: rate 103 sinus tachycardia normal intervals no signs of ischemia unchanged from previous interpreted by me Radiology Impression Discussion of test interpretation with radiology: I have reviewed the radiologist's reading. External Record Review External record reviewed: Inpatient record and Office record Critical Care Time Critical Care Time Critical Care Time: Yes Total Critical Care Time: 60 Attestation: patient for altered mental status got a complete septic workup found to have a lactic of 2.8 given sepsis fluids as well as early antibiotics multiple re-evaluations and ultimately found to have elevated LFTs requiring ultrasound and CT scan of the abdomen Discharge Plan Discharge Clinical Impression: Acute alteration in mental status, Elevated LFTs, Acidosis, lactic, Acute dehydration Patient Disposition: Still a Patient Print Language: Spanish
[2025-03-29] MEDS: Ketorolac Tromethamine 15 MG/ML VIAL IVPUSH (19:16)
[2025-03-29] MEDS: Acetaminophen 1,000 MG/100 ML PIGGYBACK 400 MG IV (19:17)
[2025-03-29 19:33] LABS: VBG Base Excess -1.4 mmol/L; VBG HCO3 22 mmol/L (22-26); VBG pCO2 34 mmHg; VBG pH 7.42 (7.32-7.43); VBG pO2 45 mmHg
[2025-03-29 19:33] LABS: Basophils Absolute Auto 0.1 X10*3/uL (0.0-0.2); Basophils Percent Auto 0.9 % (0-2); Hematocrit 36.8 % (42.0-52.0); Hemoglobin 12.9 g/dl (14.0-18.0); Imm Gran Abs Auto 0.02 X10*3/uL (0.00-0.03); Imm Gran Pct Auto 0.3 % (0.0-0.4); Lymphocytes Absolute Auto 2.9 X10*3/uL (1.2-4.9); Lymphocytes Percent Auto 38.9 % (20-40); MANUAL DIFF FLAG SCAN; Mean Corpuscular HGB Conc 35.1 g/dl (31.0-36.0); Mean Corpuscular Hemoglobin 27.3 pg (27.0-33.0); Mean Corpuscular Volume 77.8 fL (80.0-98.0); Mean Platelet Volume 11.4 fL (9.4-12.4); Monocytes Absolute Auto 0.5 X10*3/uL (0.1-1.2); Neutrophils Absolute Auto 4.1 x10*3/uL (2.0-8.3); Neutrophils Percent Auto 53.9 % (45-73); Platelet Count 225 X10*3/uL (160-400); Red Blood Count 4.73 X10*6/uL (4.60-5.80); Red Cell Distribution Width 14.7 % (11.0-16.0); SCAN SMEAR FLAG 1; White Blood Count 7.6 X10*3/uL (4.8-10.8)
[2025-03-29 19:39] LABS: INTERNATIONAL NORM RATIO 1.1 (0.9-1.1); Prothrombin Time 12.9 SEC (10.9-12.4)
[2025-03-29 19:40] LABS: Ammonia 50 umol/L (13-55)
[2025-03-29 19:40] LABS: Venous Blood Gas Refer to POC result
[2025-03-29 19:42] LABS: Partial Thromboplastin Time 30.3 SEC (26.0-36.8)
[2025-03-29 19:46] LABS: Ethanol < 10 mg/dL
[2025-03-29] MEDS: 0.9 % Sodium Chloride 1,000 ML 999 ML IV ×2 (19:48)
[2025-03-29 19:49] LABS: Beta-Hydroxybutyrate 0.32 mmol/L (0.02-0.27)
[2025-03-29 19:50] LABS: Alanine Aminotransferase 165 U/L (0-40); Albumin Level 3.8 g/dL (3.5-5.0); Alkaline Phosphatase 132 U/L (39-117); Anion Gap 14 (12-20); Aspartate Amino Transferase 193 U/L (5-37); Bilirubin Direct 0.3 mg/dL (0.0-0.5); Bilirubin Total 0.5 mg/dL (0.0-1.0); Blood Urea Nitrogen 14 mg/dL (9-16); Calcium 8.7 mg/dL (8.4-10.2); Carbon Dioxide 21 mmol/L (22-29); Chloride 99 mmol/L (96-108); Creatinine Clr Calc Pharmacy 68.3; Estimated Glomerular Filt Rate > 60; Glucose Random 175 mg/dL (60-115); Lipase 65 U/L (8-78); Magnesium 1.8 mg/dL (1.6-2.6); Sodium 130 mmol/L (135-145); Total Protein 6.9 g/dL (6.5-8.0)
[2025-03-29 19:57] LABS: Lactic Acid 2.8 mmol/L (0.5-2.0); Troponin-I High Sensitivity 9.9 ng/L (<3.5-35.0)
[2025-03-29 19:58] VITALS: BP 110/62; PULSE 94; RESP 25; TEMP 37.4; O2SAT 91
[2025-03-29 19:58] LABS: SLIDE REVIEW VERIFIED
[2025-03-29] MEDS: cefEPime HCl/D5W 2 GM/50 ML PIGGYBACK IV (20:03)
[2025-03-29 20:08] LABS: Influenza A PCR NEGATIVE (Negative); Influenza B PCR NEGATIVE (Negative); Resp Syncy Virus RNA Qual PCR NEGATIVE (Negative); SARS COV2 PCR INHOUSE NEGATIVE (Negative)
--- OUTSIDE RECORDS SUMMARY | 2025-03-29 20:26 | XMS_ITS | Encounter Summary ---
Author Organization [employer] Address [address] [facility] 7t [place] [address] Care Team Providers Care Rating Examiner Name Role Phone Name, Marlon CUI Primary Care Provider PuEliana golden PharmD Unavailable [phone] Reason for Visit * Reason Comments Med Refill Encounter Details Date Type Department Care Team (Late Contact Info) Description 09/08/2023 Refill [facility] MEDICINE [address] [place] [address] Name, MD Marlon [address] [place] [address] Diabetes mellitus type 2 in obese ([facility]) Social History Tobacco Use Types Packs/Day [...] Department Care Team (Late Contact Info) Description 04/21/2025 10:00 AM EDT Medication Management [facility] MEDICINE [address] [place] [address] Puia, Eliana, PharmD [address] [place] [address] 07/14/2025 10:30 AM EDT Office Visit [facility] OPTOMETRY [address] [place] [address] Robert, Milagros, OD [address] [place] [address] documented as of this encounter Visit Diagnoses Diagnosis Diabetes mellitus type 2 in obese Type II or unspecified type diabetes mellitus without mention of complication, not stated as uncontrolled documented in this encounter Care Teams Rating Examiner Relationship Specialty Start Date End Date Name, MD Marlon [address] [place] [address] PCP - General Family Medicine 02/15/16 Eliana Mark PharmD [address] [place] [address] Pharmacist Internal Medicine 10/09/24 documented as of this encounter
--- OUTSIDE RECORDS SUMMARY | 2025-03-29 20:26 | XMS_ITS | Encounter Summary ---
Author Organization [employer] Address [address] [facility] 7[address] [place] [address] Care Team Providers Care Airline Attendant Name Role Phone Name, Marlon CUI Primary Care Provider PuEliana golden PharmD Unavailable Reason for Visit * Reason Comments Med Refill Encounter Details Date Type Department Care Team (Late Contact Info) Description 10/17/2023 Refill [facility] MEDICINE [address] [place] [address] Name, MD Marlon [address] [place] [address] Diabetes mellitus type 2 in obese ([facility]) Social History Tobacco Use Types Packs/Day [...] Description 04/21/2025 10:00 AM EDT Medication Management [facility] MEDICINE [address] [place] [address] Puia, Eliana, PharmD [address] [place] [address] 07/14/2025 10:30 AM EDT Office Visit [facility] OPTOMETRY [address] [place] [address] Robert, Milagros, OD [address] [place] [address] documented as of this encounter Visit Diagnoses Diagnosis Diabetes mellitus type 2 in obese Type II or unspecified type diabetes mellitus without mention of complication, not stated as uncontrolled documented in this encounter Care Teams Airline Attendant Relationship Specialty Start Date End Date Name, MD Marlon [address] [place] [address] PCP - General Family Medicine 02/15/16 Eliana Mark PharmD [address] [place] [address] Pharmacist Internal Medicine 10/09/24 documented as of this encounter
--- OUTSIDE RECORDS SUMMARY | 2025-03-29 20:26 | XMS_ITS | Encounter Summary ---
Author Organization [employer] Address [address] [facility] [address] [place] [address] Care Team Providers Care Rug Setter Velvet Name Role Phone Name, Marlon CUI Primary Care Provider PuEliana golden PharmD Unavailable [phone] Reason for Visit * Reason Onset Date Comments Med Refill 09/09/2023 Encounter Details Date Type Department Care Team (Late Contact Info) Description 09/09/2023 Telephone [facility] MEDICINE [address] [place] [id number] Name, MD Marlon [address] [place] [address] Med Refill Social History Tobacco Use Types [...] Description 04/21/2025 10:00 AM EDT Medication Management [facility] MEDICINE [address] [place] [address] Puia, Eliana, PharmD [address] [place] [address] 07/14/2025 10:30 AM EDT Office Visit [facility] OPTOMETRY [address] [place], [place] [phone] Robert, Milagros, OD [address] [place] [address] documented as of this encounter Visit Diagnoses Not on filedocumented in this encounter Care Teams Rug Setter Velvet Relationship Specialty Start Date End Date Name, MD Marlon [address] [place] [id number] PCP - General Family Medicine 02/15/16 Eliana Mark PharmD [address] [place] [address] Pharmacist Internal Medicine 10/09/24 documented as of this encounter
--- OUTSIDE RECORDS SUMMARY | 2025-03-29 20:27 | XMS_ITS | Encounter Summary ---
Author Organization [employer] Address [address] [facility] 7t [place] [address] Care Team Providers Care Principal Account Clerk Name Role Phone Name, Marlon CUI Primary Care Provider Eliana Mark PharmD Unavailable Encounter Details Date Type Department Care Team (Latest Contact Info) Description 05/18/2022 Abstract [facility] CONVERSIONS Dental, Provider, DDS Social History [...] Care Team (Late st Contact Info) Description 04/21/2025 10:00 AM EDT Medication Management [facility] MEDICINE [address] [place] [address] PuiaEliana, PharmD [address] [place] [address] 07/14/2025 10:30 AM EDT Office Visit [facility] OPTOMETRY [address] [place] [address] Robert, Milagros, OD [address] [place] [address] documented as of this encounter Visit Diagnoses Not on filedocumented in this encounter Care Teams Principal Account Clerk Relationship Specialty Start Date End Date Name, MD Marlon [address] [place] [address] PCP - General Family Medicine 02/15/16 Eliana Mark, Delfina [address] [place] [phone] Pharmacist Internal Medicine 10/09/24 documented as of this encounter
--- OUTSIDE RECORDS SUMMARY | 2025-03-29 20:27 | XMS_ITS | Encounter Summary ---
Author Organization [employer] Address [address] [facility] 7t [place] [address] Care Team Providers Care Watch Inspector Name Role Phone Name, Marlon CUI Primary Care Provider Eliana Mark PharmD Unavailable Encounter Details Date Type Department Care Team (Late st Contact Info) Description 01/08/2023 Orders Only [facility] MEDICINE [address] [place] [address] Juany Napier LPN Social History Tobacco Use [...] Description 04/21/2025 10:00 AM EDT Medication Management [facility] MEDICINE [address] [place] [address] Eliana Mark, PharmD [address] [place] [address] 07/14/2025 10:30 AM EDT Office Visit [facility] OPTOMETRY [address] [place] [address] Milagros Jones, OD [address] [place] [address] documented as of this encounter Visit Diagnoses Not on filedocumented in this encounter Care Teams Watch Inspector Relationship Specialty Start Date End Date Name, MD Marlon [address] [place] [address] PCP - General Family Medicine 02/15/16 Eliana Mark PharmD [address] [place] [address] Pharmacist Internal Medicine 10/09/24 documented as of this encounter
--- OUTSIDE RECORDS SUMMARY | 2025-03-29 20:27 | XMS_ITS | Clinical Summary ---
Author Organization Unknown Care Team Providers Care Precision Agriculture Specialist Name Role Phone PRISCILLA BRITO, LORETO Unavailable Unavailable NATHAN RAILROAD WATCHMAN, NOMAN Unavailable Unavailable CESIA NELSON, WAGNER Unavailable Unavailable Payers Payer Name Policy Type Policy Number Effective Date Expira tion Date [facility] [id number] MEDICAID [facility] [id number] MEDICARE - [facility] [id number] Problems Condition Name Condition Details Condition Category Status Onset Date Resolution Date Last Treatment Date Treating Clinician Comments SCHIZOPHRENI A, UNSPECIFIED Active 05-28 00:00: 00 TYPE 2 DIABETES MELLITUS WITHOUT COMPLICATION S Active 11-18 00:00: 00 INHALANT ABUSE, IN REMISSION Active 11-18 00:00: 00 SWITCHBOARD CLERK (CURRENT) USE OF ORAL HYPOGLYCEMIC DRUGS Active [...] 20 mg tablet 12-15 00:00: 00 Yes [id number] 20 mg EVERY DAY 20 mg EVERY DAY (route: oral) Alternate Route: BY MOUTH. Med Classific ation: Cardiovas cular Therapy Agents benztropine 1 mg tablet 01-28 00:00: 00 Yes [id number] 1 mg DAILY 1 mg SHERIN Y (route: oral) Alternate Route: NONE. Med Classific ation: Central Nervous System Agents Depakote ER 500 mg tablet,exte nded release 01-28 00:00: 00 Yes [id number] 500 mg BEDTIME 500 mg BEDTIME (route: oral) Alternate Route: NONE. Med Classific ation: Central Nervous System Agents metformin 500 mg tablet 1-28 00:00: 00 12-30 23:59 :00 No [id number] 500 mg EVERY DAY 500 mg EVERY DAY (route: oral) Alternate Route: BY MOUTH. Med Classific ation: Endocrine Risperdal Consta 50 mg/2 mL intramuscul ar susp,extend ed release 2- 00:00: 00 Yes [id number] 50 mg 1 SYRINGE INTRAMUSCU LARLY ONCE EVERY TWO WEEKS DIRECTED EVERY 50 mg 1 SYRINGE INTRAMUSCU LARLY ONCE EVERY TWO WEEKS DIRECTED EVERY (route: intramuscu lar) Alternate Route: 50MG IM. Med Classific ation: Central Nervous System Agents Risperdal 2 mg tablet 3-13 00:00: 00 Yes [id number] 2 mg BEDTIME 2 mg BEDTIME (route: oral) Alternate Route: NONE. Med Classific ation: Central Nervous System Agents glipizide ER 2.5 mg tablet, extended release 24 hr 6-30 00:00: 00 04-27 23:59 :00 No [id number] 2.5 mg DAILY 2.5 mg DAILY (route: oral) Med Classific ation: Endocrine metformin ER 500 mg tablet,exte nded release 24 hr 2-14 00:00: 00 Yes [id number] 500 mg 2 TIMES DAILY 500 mg 2 TIMES DAILY (route: oral) Med Classific ation: Endocrine losartan 50 mg tablet 4-15 00:00: 00 Yes [id number] 50 mg DAILY 50 mg DAILY (route: oral) Med Classific ation: Cardiovas cular Therapy Agents Trulicity 0.75 mg/0.5 mL subcutaneou s pen injector 4-15 00:00: 00 Yes [id number] 0.75 mg WEEKLY 0.75 mg WEEKLY (route: subcutaneo us) Med Classific ation: Endocrine Vital Signs Vital Name Observation Time Observation Value Commen ts Temperature 2025-03-28 10:58:00.000 97.5 [degF] Temperature 2025-03-27 12:07:00.000 97.5 [degF] Temperature 2025-03-26 11:50:00.000 97.5 [degF] Temperature 2025-03-25 11:32:00.000 97.5 [degF] Temperature 2025-03-24 12:18:00.000 97.5 [degF] Temperature 2025-03-23 12:36:00.000 97.7 [degF] Temperature 2025-03-22 11:46:00.000 97.5 [degF] Temperature 2025-03-21 10:54:00.000 97.5 [degF] Temperature 2025-03-20 11:12:00.000 97.5 [degF] Temperature 2025-03-19 11:59:00.000 97.5 [degF] Temperature 2025-03-18 11:09:00.000 97.7 [degF] Temperature 2025-03-17 13:31:00.000 98.2 [degF] Temperature 2025-03-16 12:09:00.000 97.5 [degF] Temperature 2025-03-15 11:33:00.000 97.9 [degF] Temperature 2025-03-14 10:53:00.000 97.7 [degF] Temperature 2025-03-13 11:25:00.000 97.7 [degF] Temperature 2025-03-12 11:28:00.000 97.7 [degF] Temperature 2025-03-11 10:55:00.000 97.5 [degF] Temperature 2025-03-10 11:54:00.000 97.9 [degF] Temperature 2025-03-09 11:30:00.000 97.5 [degF] Temperature 2025-03-08 14:04:00.000 98.1 [degF] Temperature 2025-03-08 12:01:00.000 97.5 [degF] Temperature 2025-03-06 12:01:00.000 97.5 [degF] Temperature 2025-03-05 13:54:00.000 97.8 [degF] Temperature 2025-03-04 12:20:00.000 98 [degF] Temperature 2025-03-03 12:42:00.000 97.6 [degF] Temperature 2025-03-02 11:52:00.000 98.1 [degF] Plan of Treatment Planned Activity Planned Date [...] AND FALL PREVENTION STRATEGIES.] Future Scheduled Test PATIENT DAVE S A RISK OF HOSPITALIZATION AND ED USE. SKILLED NURSE TO ESTABLISH SUPPORT MEASURES TO MINIMIZE RISK OF HOSPITALIZATION AND ED USE, AND INSTRUCT PATIENT/CAREGIVER ON METHODS TO REDUCE AVOIDABLE HOSPITALIZATION AND ED USE. [code = PATIENT HAS A RISK OF HOSPITALIZATION AND ED USE. SKILLED NURSE TO ESTABLISH SUPPORT MEASURES TO MINIMIZE RISK OF HOSPITALIZATION AND ED USE, AND INSTRUCT PATIENT/CAREGIVER ON METHODS TO REDUCE AVOIDABLE HOSPITALIZATION AND ED USE.] Future Scheduled Test SKILLED NU RSE TO [...] AWARENESS FOR SAFETY AND WILL NOTIFY CLINICAL FILM MASKER AND PHYSICIAN/PROVIDER WITH ANY CHANGE IN CONDITION. [code = SKILLED NURSE WILL MAINTAIN SITUATIONAL AWARENESS FOR SAFETY AND WILL NOTIFY CLINICAL FILM MASKER AND PHYSICIAN/PROVIDER WITH ANY CHANGE IN CONDITION.] Future Scheduled Test SKILLED NU RSE FOR O/A OF GENERAL HEALTH STATUS OF PAIN, CARDIAC, RESPIRATORY, GASTROINTESTINAL, GENITOURINARY, SKIN, NEUROLOGIC, ENDOCRINE SYSTEMS TO IDENTIFY CHANGES ASSOCIATED WITH EXACERBATION FOR EARLY INTERVENTION OF COMPLICATIONS DAILY [code = SKILLED NURSE FOR O/A OF GENERAL HEALTH STATUS OF PAIN, CARDIAC, RESPIRATORY, GASTROINTESTINAL, GENITOURINARY, SKIN, NEUROLOGIC, ENDOCRINE SYSTEMS TO IDENTIFY CHANGES ASSOCIATED WITH EXACERBATION FOR EARLY INTERVENTION OF COMPLICATIONS DAILY ] Future Scheduled Test SKILLED NU [...] MEDICATIONS DAILY AND PRE-POUR MEDICATIONS TILL NEXT ALF VISIT PER MEDICATION LIST. [code = SKILLED NURSE TO ADMINISTER MEDICATIONS DAILY AND PRE-POUR MEDICATIONS TILL NEXT ALF VISIT PER MEDICATION LIST.] Future Scheduled Test SKILLED NU RSE FOR MEDICATION ADMINISTRATION PER MEDICATION LIST TO BE PERFORMED DAILY [code = SKILLED NURSE FOR MEDICATION ADMINISTRATION PER MEDICATION LIST TO BE PERFORMED DAILY ] Future Scheduled Test SKILLED NU RSE TO PRE-POUR MEDICATION PER MEDICATION LIST TILL NEXT ALF VISIT [code = SKILLED NURSE TO PRE-POUR MEDICATION PER MEDICATION LIST TILL NEXT ALF VISIT ] Future Scheduled Test SKILLED NU RSE FOR ADMINISTRATION AND TEACHING OF PRESCRIBED INJECTION THERAPY FOR TRULICITY ORDERED [code = SKILLED NURSE FOR ADMINISTRATION AND TEACHING OF PRESCRIBED INJECTION THERAPY FOR TRULICITY ORDERED ] Future Scheduled Test SKILLED NU RSE [...] CARE WILL BE ESTABLISHED THAT MEETS PATIENT'S ALF NEEDS AND INCLUDES PATIENT GOAL FOR HOME HEALTH. Goal Provider Goal - PATIENT/CAREGIVER WILL VERBALIZE/DEMONSTRATE EFFECTIVE HOME SAFETY AND FALL PREVENTION STRATEGIES THROUGHOUT CERTIFICATION PERIOD. Goal Provider Goal - PATIENT WILL HAVE SUPPORT MEASURES ESTABLISHED TO PREVENT HOSPITALIZATION AND ED USE AND PATIENT/CAREGIVER WILL VERBALIZE/DEMONSTRATE METHODS TO REDUCE AVOIDABLE HOSPITALIZATION AND ED USE BY END OF EPISODE. Goal Provider Goal - PATIENT/CAREGIVER WILL VERBALIZE [...] THE CERTIFICATION PERIOD. Goal Provider Goal - CHANGE IN GENERAL HEALTH STATUS WILL BE IDENTIFIED AND REPORTED TO PHYSICIAN FOR PROMPT INTERVENTION TO MINIMIZE ASSOCIATED RISKS THROUGHOUT CERTIFICATION PERIOD. [...] PERIOD. Goal Provider Goal - PATIENT WILL RECEIVE TRULICITY ORDERED. PATIENT/CAREGIVER WILL VERBALIZE/DEMONSTRATE KNOWLEDGE OF INJECTION THERAPY BY THE END OF THE CERTIFICATION PERIOD. [...] End Date/Time Encounter Type Admission Type Attending [facility] Department Encounter ID Discharge Date Discharge Status Discharge Condition Discharge Reason Percent Goals Met 2025-03-02 00:00:00 2025-04-30 00:00:00 Outpatient RADHARTIFIC WAGNER [facility] [id number] 22.58
--- OUTSIDE RECORDS SUMMARY | 2025-03-29 20:27 | XMS_ITS | Encounter Summary ---
Author Organization [employer] Address [address] [facility] 7t [place] [address] Care Team Providers Care Gas Check Pad Maker Name Role Phone Name, Marlon CUI Primary Care Provider Eliana Mark PharmD Unavailable Encounter Details Date Type Department Care Team (Latest Contact Info) Description 09/17/2019 Abstract [facility] CONVERSIONS Dental, Provider, DDS Social History [...] [facility] MEDICINE [address] [place] [address] PuiaEliana, PharmD [address] [place] [address] 07/14/2025 10:30 AM EDT Office Visit [facility] OPTOMETRY [address] [place] [address] Robert, Milagros, OD [address] [place] [address] documented as of this encounter Visit Diagnoses Not on filedocumented in this encounter Care Teams Gas Check Pad Maker Relationship Specialty Start Date End Date Name, MD Marlon [address] [place] [address] PCP - General Family Medicine 02/15/16 Eliana Mark, MikeD [address] [place] [phone] Pharmacist Internal Medicine 10/09/24 documented as of this encounter
--- OUTSIDE RECORDS SUMMARY | 2025-03-29 20:27 | XMS_ITS | Clinical Summary ---
Author Organization [employer] Address [address] [facility] 7t [place] [address] Care Team Providers Care Patent Legal Assistant Name Role Phone Name, Marlon CUI Primary Care Provider [phone] Eliana Mark PharmD Unavailable [phone] Allergies No known active allergies Medications benztropine (Cogentin) 1 MG tablet Take 1 mg by mouth in the morning. 02/12/20 23 Active divalproex (Depakote ER) 500 MG 24 hr tablet TAKE 3 TABLETS BY MOUTH EVERY DAY AT BEDTIME 02/12/20 23 Active risperiDONE (RisperDAL) 2 MG tablet Take 2 mg by mouth at bedtime. 02/12/20 23 Active RisperDAL Consta 50 MG injection INJECT ONE (1) EACH INTO THE MUSCLE EVERY 2 WEEKS 03/21/20 23 Active atorvastatin (Lipitor) 20 MG tabletIndicatio ns:High cholesterol,Typ e 2 diabetes mellitus with obesity (CMS/HCC) (CMS/HCC) Take 1 tablet (20 mg) by mouth Once per day. 90 tablet 3 10/09/20 24 Active metFORMIN XR (Glucophage-XR) 500 MG 24 hr tabletIndicatio ns:Type 2 diabetes mellitus with obesity (CMS/HCC) (CMS/HCC) Take 2 tablets (1,000 mg) by mouth with breakfast and with evening meal. Do not crush, chew, or split. 120 tablet 11 01/22/20 25 026 Active losartan (Cozaar) 50 MG tabletIndicatio ns:Type 2 diabetes mellitus with obesity (CMS/HCC) (CMS/HCC),Hyper tension, unspecified type Take 1 tablet (50 mg) by mouth Once per day. 30 tablet 2 01/22/20 25 Active Blood Glucose Monitoring Suppl (FreeStyle Lite) deviceIndicatio ns:Type 2 diabetes mellitus with obesity (CMS/HCC) ([facility]) Inject 1 each under the skin Once per day. Use to test blood sugar daily as directed 1 each 03/02/20 25 Active FreeStyle lancetsIndicati ons:Type 2 diabetes mellitus with obesity (CMS/HCC) ([facility]) 1 each by Other route Once per day. Use to test blood sugar once daily as directed 100 each 3 03/02/20 25 Active glucose blood (FREESTYLE LITE) test stripIndication s:Type 2 diabetes mellitus with obesity (CMS/HCC) ([facility]) USE TO TEST BLOOD SUGAR ONCE DAILY DIRECTED 50 each 11 03/02/20 25 Active Dulaglutide (Trulicity) 1.5 MG/0.5ML solution auto-injector Inject 1.5 mg under the skin 1 (one) time per week. 2 mL 03/02/20 25 Active Blood Glucose Monitoring Suppl (FreeStyle Lite) deviceIndicatio ns:Type 2 diabetes mellitus with obesity (CMS/HCC) ([facility]) Inject 1 each under the skin Once per day. Use to test blood sugar as directed 1 each 10/09/20 24 025 Discontinued(Re order (will not trigger notification to Pharmacy)) glucose blood (FREESTYLE LITE) test stripIndication s:Type 2 diabetes mellitus with obesity (CMS/HCC) ([facility]) USE TO TEST BLOOD SUGAR ONCE DAILY (FASTING) 100 each 11 10/09/20 24 025 Discontinued(Re order (will not trigger notification to Pharmacy)) FreeStyle lancetsIndicati ons:Type 2 diabetes mellitus with obesity (CMS/HCC) ([facility]) 1 each by Other route Once per day. Use to test blood sugar once daily (fasting) as directed 100 each 3 10/09/20 24 025 Discontinued(Re order (will not trigger notification to Pharmacy)) Dulaglutide (Trulicity) 0.75 MG/0.5ML solution auto-injectorIn dications:Type 2 diabetes mellitus with obesity (CMS/HCC) ([facility]) Inject 0.75 mg under the skin 1 (one) time per week. 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 11/18/2018 11/28/2023 Posterior rhinorrhea 04/24/2017 11/28/2023 Type 2 diabetes mellitus with obesity ([facility]) 09/24/2016 Bipolar I disorder 03/22/2016 11/28/2023 Hypertriglyceridemia 10/06/2013 Schizophrenia, unspecified 11/18/1961 Resolved Problems Problem Noted Date Diagnosed Date Resolved Date Intellectual disability 04/11/202303/19 Encounters Date Type Department Care Team Description 03/15/2025 Telephone [facility] MEDICINE [address] [place] [address] Marlon Encarnacion MD Chart Prep 03/02/2025 Orders Only [facility] MEDICINE [address] [place] [address] Marlon Encarnacion MD 03/02/2025 Travel 02/22/2025 Telephone [facility] OPTOMETRY [address] [place] [address] Milagros Jones, OD 02/11/2025 1:30 PM EDT Office Visit [facility] OPTOMETRY [address] [place] [address] Milagros Jones, OD Diabetes mellitus type 2 without retinopathy ([facility]) (Primary Dx); Glaucoma suspect of both eyes; Nuclear senile cataract of left eye; Pseudophakia of right eye; Presbyopia 02/11/2025 Travel 01/21/2025 Orders Only [facility] MEDICINE [address] [place] [address] Marlon Encarnacion MD Hypertension, unspecified type (Primary Dx) 01/21/2025 Orders Only [facility] MEDICINE [address] [place] [address] Marlon Encarnacion MD 01/21/2025 Travel from Last 3 Months Immunizations Name Administration [...] Description 04/21/2025 10:00 AM EDT Medication Management [facility]IC[facility] [address] [place] [address] Eliana Mark, PharmD [address] [place] [address] 07/14/2025 10:30 AM EDT Office Visit [facility] OPTOMETRY [address] [place] [address] Robert, Milagros, OD [address] [place] [address] Health Maintenance Due Date Last Done Comments [...] Additional history exists Diabetes: Hemoglobin A1C 04/23/2025 03//2 025, 10/29/2024, 08/18/2024 Depression Screening 08/18/2025 08/18/2024, 10/01/20 24 Diabetes: Urine Protein Screening 08/21/2025 08/21/2024 [...] METABOLIC PANEL Routine 03/02/2025 10:17 AM EDT POCT GLUCOSE Routine 03/02/2025 10:00 AM EDT Type 2 diabetes mellitus with obesity (CMS/HCC) ([facility]) OPTIC DISC PHOTOS - OU - BOTH EYES Routine 02/11/2025 1:30 PM EDT Glaucoma suspect of both eyes POCT GLYCATED HEMOGLOBIN, TOTAL Routine 01/21/2025 5:38 PM EST Type 2 diabetes mellitus with obesity (CMS/HCC) ([facility]) VITAMIN B12 Routine 01/21/2025 11:10 AM EST Hypertension, unspecified type BASIC METABOLIC PANEL Routine 01/21/2025 11:10 AM EST ALBUMIN, RANDOM URINE W/CREATININE Routine 08/21/2024 9:03 AM EDT Type 2 diabetes mellitus with obesity (CMS/HCC) ([facility]) Hyperglycemia LIPID PANEL, STANDARD Routine 08/21/2024 9:03 AM EDT Type 2 diabetes mellitus with obesity (CMS/HCC) ([facility]) Hyperglycemia INTRAORAL - COMPLETE SERIES OF RADIOGRAPHIC [...] included. Sodium 135 135 - 145 mmol/L [facility] Potassium 3.9 3.3 - 5.1 mmol/L [facility] Chloride 103 96 - 108 mmol/L [facility] Carbon Dioxide 20(L) 22 - 29 mmol/L [facility] Anion Gap 16 12 - 20 [facility] Urea Nitrogen (BUN) 10 9 - 16 mg/dL [facility] Creatinine, Serum 0.77 0.5 - 1.4 mg/dL [facility] Estimated Glomerular Filt Rate >60 [facility] Comment:Chronic Kidney Disea se: Estimated GFR < 60 mL/min/1.93i0Ofdrpg Kidney Disease: Estimated GFR < 15 mL/min/1.73m2 Glucose 185(H) 60 - 115 mg/dL [facility] Calcium 9.8 8.4 - 10.2 mg/dL [facility] 03/02/2025 10:1 7 AM EDT 03/02/2025 11:02 AM EDT us Marlon Encarnacion MD LAB BLOOD ORDERABLES Final Resul t [facility] [address] [place] [phone] * POCT Glucose (03/02/2025 10:00 AM EDT) Glucose Blood, POC 176 60 - 200 mg/dL Blood Capillary blood specimen / Unknown 03/02/2025 10:00 AM EDT us Marlon Encarnacion MD POINT OF CARE TEST ENTER/EDIT OR DERABLES Final Result * Optic Disc Photos - OU - Both Eyes (02/11/2025 1:30 PM EDT) Narrative Milagros Jones, OD - 02/22/2025 12:19 PM EDT Images [...] % Blood 01/21/2025 5:38 PM EST Result [facility] us Marlon Encarnacion MD POINT OF CARE TEST ENTER/EDIT OR DERABLES Final Result * Vitamin B12 (01/21/2025 11:10 AM EST) Vitamin B12 765 200 - 900 pg/mL [facility] Comment:NORMAL 200-900 PG/ML INDETERMINATE 160-199 PG/ML DEFICIENT < 160 PG/ML 01/21/2025 11:1 0 AM EST 01/21/2025 11:41 AM EST us Marlon Encarnacion MD LAB BLOOD ORDERABLES Final Resul t Performing Organization Address City/[facility]/ZIP Co de Phone Number [facility] [address] [place] [address] [phone] * Albumin, Random Urine W/Creatinine (08/21/2024 9:03 AM EDT) Creatinine, Urine 59.39 mg/dL [facility] Microalbumin Urine 11.0 mg/L [facility] Microalbum Creatinine Ratio Ur 18.5 <30 ug/mg cr [facility] Comment:Albumin/Creatinine R atio Reference Ranges: Normal: < 30 ug/mg creatinine Microalbuminuria: 30 - 300 ug/mg creatinineClinical Albuminuria: > 300 ug/mg creatinine Urine (Urine, Random) 08/21/2024 9:03 AM EDT 08/21/2024 11:17 AM EDT us Marlon Encarnacion MD LAB URINE ORDERABLES Final Resul t [facility] [address] [place] [phone] * (ABNORMAL) Lipid Panel, Standard (08/21/2024 9:03 AM EDT) Triglycerides 182(H) <150 mg/dL [facility] Comment:Desirable Triglyceri de: less than 150 mg/dLBorderline High Triglyceride 150-199 mg/dLHigh Triglyceride: 200-499 mg/dLVery High Triglyceride: greater than or equal to 5OO mg/dL Cholesterol 132 <200 mg/dL [facility] Comment:Desirable Cholestero l: less than 200 mg/dLBorderline High Cholesterol: 200-239 mg/dLHigh Cholesterol: greater than 239 mg/dL LDL Cholesterol Calculated 59 <100 mg/dL [facility] Comment:Desirable LDL: less than 100 mg/dLNear Optimal/Above Optimal LDL: 110- 129 mg/dLBorderline High LDL: 130-159 mg/dLHigh LDL: 160-189 mg/dLVery High LDL: greater than or equal to 190 mg/dL HDL Cholesterol 37(L) >40 mg/dL [facility] Comment:Desirable HDL: great er than 40 mg/dL Note: This HDL assay may give artificially low results in patients with liver disease. Blood Venous blood specimen / Unknown 08/21/2024 9:03 AM EDT 08/21/2024 11:06 AM EDT us Marlon Encarnacion MD LAB BLOOD ORDERABLES Final Resul t [facility] [address] [place] [phone] * Hm Colonoscopy (12/26/2019 1:31 PM EST) Colonoscopy Normal Normal Narrative Emily Nuñez - 12/26/2019 1:31 PM EST Recommended 10 year follow up Historical Provider HEALTH MAINTENANCE Final Result from Last 3 Months or Most Recently Relevant to Health Maintenance Insurance [facility] [employer] OPT[employer] (HMO D-SNP) SERGIO MARTINEZ [id number] Care Teams Patent Legal Assistant Relationship Specialty Start Date End Date Name, MD Marlon [address] [place] [address] PCP - General Family Medicine 02/15/16 Eliana Mark PharmD [address] [place] [address] Pharmacist Internal Medicine 10/09/24
--- OUTSIDE RECORDS SUMMARY | 2025-03-29 20:27 | XMS_ITS | Clinical Summary ---
Author Organization Unknown Care Team Providers Care Metal Mockup Maker Name Role Phone PRISCILLA BRITO, LORETO Unavailable Unavailable NATHAN AERONAUTICAL ENGINEERING PROFESSOR, NOMAN Unavailable Unavailable CESIA NELSON, WAGNER Unavailable Unavailable Payers Payer Name Policy Type Policy Number Effective Date Expira tion Date [facility] [id number] MEDICAID [facility] [id number] MEDICARE - [facility] [id number] Problems Condition Name Condition Details Condition Category Status Onset Date Resolution Date Last Treatment Date Treating Clinician Comments SCHIZOPHRENI A, UNSPECIFIED Active 05-28 00:00: 00 TYPE 2 DIABETES MELLITUS WITHOUT COMPLICATION S Active 11-18 00:00: 00 INHALANT ABUSE, IN REMISSION Active 11-18 00:00: 00 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 Med Classific ation: Cardiovas cular Therapy Agents benztropine 1 mg tablet 01-28 00:00: 00 Yes [id number] 1 mg DAILY 1 mg SHERIN Y (route: oral) Alternate Route: NONE. Med Classific ation: Central Nervous System Agents Depakote ER 500 mg tablet,exte nded release 01-28 00:00: 00 Yes [id number] 500 mg BEDTIME 500 mg BEDTIME (route: oral) Alternate Route: NONE. Med Classific ation: Central Nervous System Agents metformin 500 mg tablet 1-28 00:00: 00 12-30 23:59 :00 No [id number] 500 mg EVERY DAY 500 mg EVERY DAY (route: oral) Alternate Route: BY MOUTH. Med Classific ation: Endocrine Risperdal Consta 50 mg/2 mL intramuscul ar susp,extend ed release 2- 00:00: 00 Yes [id number] 50 mg 1 SYRINGE INTRAMUSCU LARLY ONCE EVERY TWO WEEKS DIRECTED EVERY 50 mg 1 SYRINGE INTRAMUSCU LARLY ONCE EVERY TWO WEEKS DIRECTED EVERY (route: intramuscu lar) Alternate Route: 50MG IM. Med Classific ation: Central Nervous System Agents Risperdal 2 mg tablet 3-13 00:00: 00 Yes [id number] 2 mg BEDTIME 2 mg BEDTIME (route: oral) Alternate Route: NONE. Med Classific ation: Central Nervous System Agents glipizide ER 2.5 mg tablet, extended release 24 hr 6-30 00:00: 00 04-27 23:59 :00 No [id number] 2.5 mg DAILY 2.5 mg DAILY (route: oral) Med Classific ation: Endocrine metformin ER 500 mg tablet,exte nded release 24 hr 2-14 00:00: 00 Yes [id number] 500 mg 2 TIMES DAILY 500 mg 2 TIMES DAILY (route: oral) Med Classific ation: Endocrine losartan 50 mg tablet 4-15 00:00: 00 Yes [id number] 50 mg DAILY 50 mg DAILY (route: oral) Med Classific ation: Cardiovas cular Therapy Agents Trulicity 0.75 mg/0.5 mL subcutaneou s pen injector -15 00:00: 00 Yes [id number] 0.75 mg WEEKLY 0.75 mg WEEKLY (route: [...] AWARENESS FOR SAFETY AND WILL NOTIFY CLINICAL STRATEGIC PLANNING ANALYST AND PHYSICIAN/PROVIDER WITH ANY CHANGE IN CONDITION. [code = SKILLED NURSE WILL MAINTAIN SITUATIONAL AWARENESS FOR SAFETY AND WILL NOTIFY CLINICAL STRATEGIC PLANNING ANALYST AND PHYSICIAN/PROVIDER WITH ANY CHANGE IN CONDITION.] [...] MEDICATIONS DAILY AND PRE-POUR MEDICATIONS TILL NEXT RESIDENTIAL VISIT PER MEDICATION LIST. [code = SKILLED NURSE TO ADMINISTER MEDICATIONS DAILY AND PRE-POUR MEDICATIONS TILL NEXT RESIDENTIAL VISIT PER MEDICATION LIST.] Future Scheduled Test SKILLED NU RSE FOR MEDICATION ADMINISTRATION PER MEDICATION LIST TO BE PERFORMED DAILY [code = SKILLED NURSE FOR MEDICATION ADMINISTRATION PER MEDICATION LIST TO BE PERFORMED DAILY ] Future Scheduled Test SKILLED NU RSE TO PRE-POUR MEDICATION PER MEDICATION LIST TILL NEXT RESIDENTIAL VISIT [code = SKILLED NURSE TO PRE-POUR MEDICATION PER MEDICATION LIST TILL NEXT RESIDENTIAL VISIT ] Future Scheduled Test SKILLED NU [...] CARE WILL BE ESTABLISHED THAT MEETS PATIENT'S RESIDENTIAL NEEDS AND INCLUDES PATIENT GOAL FOR HOME [...] End Date/Time Encounter Type Admission Type Attending [facility] Department Encounter ID Discharge Date Discharge Status Discharge Condition Discharge Reason Percent Goals Met 2025-03-02 00:00:00 2025-04-30 00:00:00 Outpatient [facility]HART[facility] WAGNER [facility] [id number] 22.58
--- OUTSIDE RECORDS SUMMARY | 2025-03-29 20:27 | XMS_ITS | Encounter Summary ---
Author Organization [employer] Address [address] [facility] [address] [place] [address] Care Team Providers Care Band Tumbler Name Role Phone Name, Marlon CUI Primary Care Provider Eliana Mark PharmD Unavailable Encounter Details Date Type Department Care Team (Late st Contact Info) Description 02/04/2023 Orders Only [facility] [address] [place] [address] Juany Napier LPN Social History Tobacco Use [...] Description 04/21/2025 10:00 AM EDT Medication Management [facility] [address] [place] [address] Eliana Mark, PharmD [address] [place] [address] 07/14/2025 10:30 AM EDT Office Visit [facility] OPTOMETRY [address] [place] [address] Milagros Jones, OD [address] [place] [address] documented as of this encounter Visit Diagnoses Not on filedocumented in this encounter Care Teams Band Tumbler Relationship Specialty Start Date End Date Name, MD Marlon [address] [place] [address] PCP - General Family Medicine 02/15/16 Eliana Mark PharmD [address] [place] [address] Pharmacist Internal Medicine 10/09/24 documented as of this encounter
--- OUTSIDE RECORDS SUMMARY | 2025-03-29 20:27 | XMS_ITS | Encounter Summary ---
Author Organization [employer] Address [address] [facility] [address] [place] [address] Care Team Providers Care Meat Cutting Teacher Name Role Phone Name, Marlon CUI Primary Care Provider [phone] Eliana Mark PharmD Unavailable [phone] Encounter Details Date Type Department Care Team (Late st Contact Info) Description 04/29/2023 Abstract [facility] MED[facility] [address] [place] [address] Name, MD Marlon [address] [place] [address] Social History Tobacco Use Types Packs/Day Years [...] Description 04/21/2025 10:00 AM EDT Medication Management [facility] MED[facility] [address] [place], [place] [phone] Puia Eliana, PharmD [address] [place] [address] 07/14/2025 10:30 AM EDT Office Visit [facility] OPTOMETRY [address] [place], [place] [phone] Milagros Jones, OD [address] [place] [address] documented as of this encounter Procedures Procedure Name Priority Date/Time Associated Diagnosis Comments COLONOSCOPY Routine 12/26/2019 1:31 PM EST documented in this encounter Results * Colonoscopy (12/26/2019 1:31 PM EST) Colonoscopy Normal Normal Narrative Emily Nuñez - 12/26/2019 1:31 PM EST Recommended 10 year follow up us Historical Provider HEALTH MAINTENANCE Final Result documented in this encounter Visit Diagnoses Not on filedocumented in this encounter Care Teams Meat Cutting Teacher Relationship Specialty Start Date End Date Name, MD Marlon [address] [place] [address] PCP - General Family Medicine 02/15/16 Eliana Mark PharmD [address] [place] [address] Pharmacist Internal Medicine 10/09/24 documented as of this encounter
[2025-03-29] MEDS: iohexoL 350 MG/ML 100 ML INFUS..BTL 85 ML IV (20:47)
[2025-03-29] MEDS: vancomycin/NS 2,000 MG/500 ML PLAST..BAG 250 MG IV (20:56)
[2025-03-29 21:28] LABS: Reflex Lactate? Lactic Acid Added
[2025-03-29 21:29] LABS: Appearance Urine Clear; Color Urine Yellow; Glucose Urine UA Negative (Negative); Leukocyte Esterase Urine Negative (Negative); Nitrite Urine Negative (Negative); Specific Gravity - Urine 1.025 (1.005-1.025); UMIC TRIGGER UACC YES; Urine Blood Trace (Negative); Urine Ketones Trace mg/dL (Negative); Urine Protein 30 (1+) mg/dL (Neg-Trace)
[2025-03-29 21:34] LABS: Bacteria Urine None Seen (None Seen); Hyaline Casts Urine 0-2 /LPF (0-2); RBC Urine 0-2 /HPF (0-2); Squamous Epithelial Cell Urine 0-2 /HPF (0-2); WBC Urine 0-5 /HPF (0-5)
--- NOTE | 2025-03-29 21:59 | PC.NURSE ---
Assumed care for pt at 1900. Sitter and DCF staff at bedside pushed the panic button multiple times. Security, provider, oil and gas field technician, and this nurse at bedside. Pt observed acting erratically. Behavior include grabbing and throwing hospital equipment, placing non edible objects in the mouth that had to be physically removed by provider, repeatedly standing on top of the bed and jumping, would not follow commands to get down. Room cleared of all objects for pts safety. Pt ran into the bathroom and attempted to lock the door. Pt became increasingly agitated and lashed out physically at staff during redirection attempts. Care team called to bedside for assistance in de escalation efforts with no effect. Due to the escalating risk of harm to self and others pt was physically and medically restrained. Four point physical restraints applied at 1945. Criteria for removal discussed with pt. At 2009, pt is calm and cooperative with decreased agitation. RUE and LLE restraints removed. At 2024 LUE and RLE removed. No injury noted. Pt able to move all extremities with no complains. Monitoring is ongoing. 1:1 sitter and DCF staff at bedside.
[2025-03-29 22:01] VITALS: BP 110/62; PULSE 76; RESP 16; TEMP 36.9; O2SAT 98
--- NOTE | 2025-03-29 22:21 | PC.NURSE ---
This nurse called to the bedside as pt removed 18G IV line from the R AC that had Vanco running. Pt states IV line came out when pt was trying to use the urinal. Area cleaned and dressing applied. Vanco re started on the L AC. Pt tolerating well.
--- NOTE | 2025-03-29 22:21 | MHC.EDTECH ---
per Dr. Escobar, second Type and Screen not collected
[2025-03-29 22:24] LABS: ~Lactic Acid-LAB USE ONLY 1.7 mmol/L (0.5-2.0)
[2025-03-30 00:06] VITALS: BP 100/73; PULSE 71; RESP 16; TEMP -12.3; TEMP 9.8; O2SAT 97
[2025-03-30 00:13] VITALS: BP 100/73; PULSE 71; RESP 16; TEMP -12.3; TEMP 9.8; O2SAT 97
[2025-03-30 07:54] LABS: HBS Num1 12.02 mIU/mL (0-7.99); HBc Num1 0.12 S/CO (0.00-0.79); HBsAGNum1 0.33 S/CO (0.00-0.99); Hepatitis A Antibody IgM 0.11 Index (0-0.79); Hepatitis B Core Antibody Nonreactive (Nonreactive); Hepatitis B Surface Antigen Negative (Negative); ~HepC Num1 0.11 S/CO (0.00-0.79); ~Hepatitis A Antibody IgM Nonreactive (Nonreactive); ~Hepatitis B Surface Antibody REACTIVE (Nonreactive); ~Hepatitis C Antibody Nonreactive (Nonreactive)
== END 2025-03-30 00:14 | disposition home or self-care (01) ==
PROVIDERS: Emergency Provider Student in an Organized Health Care Education/Training Program
DX: R41.82 Altered mental status, unspecified (principal); E87.20 Acidosis, unspecified; E86.0 Dehydration; R79.89 Other specified abnormal findings of blood chemistry; R79.1 Abnormal coagulation profile; Z03.818 Encounter for observation for suspected exposure to other biological agents ruled out; E11.9 Type 2 diabetes mellitus without complications
CPT/HCPCS: 0241U; 70450; 71045; 74177; 76705; 80048; 80076; 80307; 81001; 82010; 82140; 82550; 82803; 83605; 83690; 83735; 84484; 85025; 85610; 85730; 86704; 86706; 86709; 86803; 86850; 86900; 86901; 87040; 87340; 93005; 96361; 96365; 96375; 99285; J0131; J0692; J1885; J3370; Q9967

== ENCOUNTER → 2025-03-29 18:54 | Outpatient (BNV) | payer OTHER, SELFPAY | PROVIDERS: Emergency Provider Student in an Organized Health Care Education/Training Program; Visit Provider Internal Medicine Cardiovascular Disease | DX: I45.10 Unspecified right bundle-branch block (principal); I25.2 Old myocardial infarction; R00.0 Tachycardia, unspecified | CPT/HCPCS: 93010 ==

== ENCOUNTER → 2025-03-29 18:55 | Outpatient (BNV) | payer OTHER, SELFPAY | PROVIDERS: Emergency Provider Student in an Organized Health Care Education/Training Program; Visit Provider Radiology Diagnostic Radiology | DX: J98.11 Atelectasis (principal); R50.9 Fever, unspecified; R41.82 Altered mental status, unspecified | CPT/HCPCS: 70450; 71045; 74177; 76705 ==